=== PATIENT | female | born 2005 | race Caucasian/White ===

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

== ENCOUNTER 2024-10-10 18:39 | Emergency (ER) | payer SELFPAY ==
[2024-10-10 18:42] VITALS: BP 149/97; PULSE 117; RESP 18; TEMP 36.3; O2SAT 100
--- NOTE | 2024-10-10 19:01 | ED_ITS ---
HPI - Abdominal Pain General Chief Complaint: Abdominal Pain Stated Complaint: RLQ pain Time Seen by Provider: 10/10/24 18:50 Focused HPI: Patient is a 18-year-old female who presents to the ER with 3-4 days of left lower quadrant abdominal pain. she reports she was constipated but took a laxative yesterday and has since had a bowel movement. Patient reports her abdominal pain gotten better since then, but my mom convinced me I needed to come in. She reports she has a history of ovarian cysts, but no other pertinent medical history related to this visit. Patient denies chest pain, shortness of breath, fever. GENERAL: Well-appearing, well-nourished, and in no acute distress. HEAD: Normocephalic, atraumatic. CHEST: Clear to auscultation. ?No respiratory distress. HEART: Tachycardia and rhythm.? NEURO: ?Alert and oriented x3. Patient screened in triage and initial orders placed.? ?Additional care and disposition to be based upon?diagnostic testing and treatment. Related Data Allergies Allergy/AdvReac Type Severity Reaction Status Date / Time No Known Allergies Allergy Verified 09/12/23 21:47 PMFSH Past Medical History Medical History Asthma Depression Morbid obesity PCOS (polycystic ovarian syndrome) Suppression of menses Surgical History Surgical History H/O ovarian cystectomy History of tonsillectomy and adenoidectomy Family History Family History Other Family history of eczema Family history of elevated blood lipids Hypertension Social History Social History Smoking status: Never smoker Second hand tobacco smoke exposure: No Alcohol intake: never Substance use: never Substance use type: does not use Lack of Transportation: YES Lack of Food: Sometimes True Current Housing: I Have Housing Concerned About Future Housing: No Difficulty Paying Gas/Electric Bills: No Difficulty Paying for Meds: No Currently Unemployed: No Education: High School Diploma/GED Difficulty w/ Childcare or Family Care: No Living arrangements: with family Additional living arrangements comments: Occupation/Education: unemployed 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 Gender identity (if verbalized by the patient): Female Sexual Orientation (if Verbalized by the Patient): Straight or Heterosexual Course Vital Signs Vital signs: Vital Signs Temperature 97.4 F L 10/10/24 18:42 Pulse Rate 117 H 10/10/24 18:42 Respiratory Rate 18 10/10/24 18:42 Blood Pressure 149/97 H 10/10/24 18:42 Pulse Oximetry 100 10/10/24 18:42 Oxygen Delivery Room Air 10/10/24 18:42 Temperature 97.4 F L 10/10/24 18:42 Pulse Rate 117 H 10/10/24 18:42 Respiratory Rate 18 10/10/24 18:42 Blood Pressure 149/97 H 10/10/24 18:42 Pulse Oximetry 100 10/10/24 18:42 Oxygen Delivery Room Air 10/10/24 18:42 Discharge Plan Discharge Patient Disposition: Left Without Being Sn Triaged Instructions: Antibiotic Form Prescriptions: No Action progesterone micronized [Prometrium] 200 mg capsule 200 mg PO QHS 10 Days Qty: 10 1RF cephalexin 500 mg capsule 500 mg PO Q6H 7 Days Qty: 28 0RF Follow-up/Referrals: Oscar,MD Amadeo [Primary Care Provider] -
--- NOTE | 2024-10-10 20:00 | PC.NURSE ---
Patient walked up to intake desk and advised that she was leaving; patient had a steady gait upon exiting ED.
== END 2024-10-10 21:09 | disposition left against medical advice (07) ==
PROVIDERS: PCP Pediatrics
DX: R10.31 Right lower quadrant pain (principal)
CPT/HCPCS: 99199

== ENCOUNTER 2024-10-13 12:15 | Emergency (ER) | payer SELFPAY ==
--- NOTE | ~2024-10-13 | XR_ITS ---
EXAMINATION: XR abdomen/kub 1V DATE: 10/13/2024 13:55 INDICATION: Constipation. Generalized abdominal pain. TECHNIQUE: A supine view of the abdomen on 4 radiographs was obtained. COMPARISON: None. FINDINGS: Relative paucity of bowel gas throughout the abdomen and pelvis. Lung bases are clear. Bones are unre markable. IMPRESSION: 1. No dilated gas-filled loops of bowel to suggest obstruction. Reviewed, dictated and finalized at location A. [employer]
[2024-10-13 12:18] VITALS: BP 147/96; PULSE 118; RESP 20; TEMP 36.8; O2SAT 99
[2024-10-13 13:17] VITALS: BP 133/98; PULSE 90; RESP 20; O2SAT 99
[2024-10-13 14:14] LABS: BEDSIDEPREGUCG Negative (Negative)
[2024-10-13 14:21] LABS: Add Urine Microscopic? YES; Appearance Urine Cloudy (Clear); Bacteria Urine 2+ /hpf; Bilirubin Urine Negative (Negative); Blood Urine Negative (Negative); Color Urine Yellow (Yellow); Glucose Urine UA Negative (Negative); Ketones Urine Negative (Negative); Leukocyte Esterase Ur 1+ LEU/UL (Negative); Nitrate Urine Negative (Negative); Non Pathogenic Casts 0-2; Protein Urine Negative (Negative); RBC Urine 0-2 /hpf (0-2); Specific Grav Ur 1.023 (1.001-1.035); Squamous Epithelial Cell Urine Moderate /hpf (Few); Urobilinogen Urine 0.2 mg/dL (<2.0); pH Urine 5.5 (5.0-9.0)
[2024-10-13 14:27] LABS: Basophils Percent Auto 0.2 % (0.2-1.2); Eosinophils Absolute Auto 0.2 K/mm3 (0-0.3); Eosinophils Percent Auto 1.2 % (0-4.4); Hematocrit 39.5 % (37.0-47.0); Hemoglobin 12.5 g/dL (12.0-15.0); Immature Granulocyte Absolute 0.07 K/mm3 (0.00-0.031); Immature Granulocyte Percent A 0.5 % (0-0.5); Lymphocytes Absolute Auto 3.37 K/mm3 (0.9-3.2); Mean Corpuscular HGB Conc 31.6 g/dl (32-36); Mean Corpuscular Hemoglobin 25.9 pg (26-34); Mean Platelet Volume 9.8 fl (7.4-10.4); Monocytes Absolute Auto 0.8 K/mm3 (0.1-0.6); Monocytes Percent Auto 6.1 % (2.6-8.5); Neutrophils Absolute Auto 8.6 K/mm3 (1.3-6.7); Platelet Count Result 469 k/mm3 (150-375); Red Blood Count 4.82 M/mm3 (4.2-5.4); Red Cell Distribution Width 15.5 % (11.5-14.5)
[2024-10-13 14:36] LABS: Alanine Aminotransferase 30 U/L (6-35); Albumin Level 4.3 g/dL (3.7-5.6); Alkaline Phosphatase 80 U/L (45-116); Anion Gap 4 mmol/L (4-12); Aspartate Amino Transferase 29 U/L (14-36); Bilirubin,Total 0.3 mg/dL (0.2-1.3); Blood Urea Nitrogen 10 mg/dL (8-21); Calcium 9.2 mg/dL (8.9-10.7); Carbon Dioxide 27 mmol/L (22-30); Chloride 108 mmol/L (98-107); Estimated CRCL calculation 241 ml/min; Estimated Glomerular Filt Rate > 60; Glucose 103 mg/dL (65-110); Potassium 4.1 mmol/L (3.4-5.0); Sodium 139 mmol/L (134-143)
--- NOTE | 2024-10-13 15:01 | ED_ITS ---
HPI - Abdominal Pain General Chief Complaint: Abdominal Pain Stated Complaint: abd pain Time Seen by Provider: 10/13/24 13:07 History of Present Illness HPI narrative: Patient is a 18-year-old female who presents ER for evaluation of lower abdominal pain. Ongoing intermittently over last week. Was here couple days ago but left without being seen due to long wait times. Pain is actually improved but she used treating herself with constipation and has only had 3 stools in last few days. No diarrhea. No vomiting. Patient was originally in the right lower quadrant but now she has some pain on left side when she bends to the left side. Related Data Allergies Allergy/AdvReac Type Severity Reaction Status Date / Time No Known Allergies Allergy Verified 09/12/23 21:47 Review of Systems Constitutional: Constitutional: Reports no additional constitutional complaints ENT: Reports system reviewed and no additional complaints, except as documented Cardiovascular: Cardiovascular: Reports no additional cardiovascular complaints Respiratory: Respiratory: Reports no additional respiratory complaints Gastrointestinal: Gastrointestinal: Reports abdominal pain, Reports constipation, Denies nausea and Denies vomiting PMFSH Past Medical History Medical History Asthma Depression Morbid obesity PCOS (polycystic ovarian syndrome) Suppression of menses Surgical History Surgical History H/O ovarian cystectomy History of tonsillectomy and adenoidectomy Family History Family History Other Family history of eczema Family history of elevated blood lipids Hypertension Social History Social History Smoking status: Never smoker Second hand tobacco smoke exposure: No Alcohol intake: never Substance use: never Substance use type: does not use Lack of Transportation: YES Lack of Food: Sometimes True Current Housing: I Have Housing Concerned About Future Housing: No Difficulty Paying Gas/Electric Bills: No Difficulty Paying for Meds: No Currently Unemployed: No Education: High School Diploma/GED Difficulty w/ Childcare or Family Care: No Living arrangements: with family Additional living arrangements comments: Occupation/Education: unemployed 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 HEAD: Normocephalic, atraumatic. ENT: Mucous membranes moist. CHEST: Clear to auscultation. No respiratory distress. HEART: Regular rate and rhythm. Normal peripheral pulses. ABDOMEN: Soft, nontender, nondistended. EXTREMITIES: Normal range of motion. No edema. NEURO: Alert and oriented x3. PSYCH: Normal mood and affect. Course Course Emergency Course: abdomen nontender on exam. José Miguel will leukocytosis. Urine without evidence of infection with 2+ bacteria 11-20 white blood cells and 1+ leukocyte esterase. Will start on cephalexin. X-ray without significant constipation. Vital Signs Vital signs: Vital Signs Temperature 98.2 F 10/13/24 12:18 Pulse Rate 118 H 10/13/24 12:18 Respiratory Rate 20 10/13/24 12:18 Blood Pressure 147/96 H 10/13/24 12:18 Pulse Oximetry 99 10/13/24 12:18 Oxygen Delivery Room Air 10/13/24 12:18 Temperature 98.2 F 10/13/24 12:18 Pulse Rate 90 10/13/24 13:17 Respiratory Rate 20 10/13/24 13:17 Blood Pressure 133/98 H 10/13/24 13:17 Pulse Oximetry 99 10/13/24 13:17 Oxygen Delivery Room Air 10/13/24 12:18 MDM - Abdominal Pain Lab Data 10/13/24 14:22 10/13/24 14:22 Labs: Lab Results 10/13/24 10/13/24 Range/Units 14:11 14:22 WBC 13.0 H (4.5-10.0) K/mm3 RBC 4.82 (4.2-5.4) M/mm3 Hgb 12.5 (12.0-15.0) g/dL Hct 39.5 (37.0-47.0) % MCV 82.0 (80-100) fl MCH 25.9 L (26-34) pg MCHC 31.6 L (32-36) g/dl RDW 15.5 H (11.5-14.5) % Plt Count 469 H (150-375) k/mm3 MPV 9.8 (7.4-10.4) fl Immature Gran % (Auto) 0.5 (0-0.5) % Neut % (Auto) 66.0 (45.5-73.1) % Lymph % (Auto) 26.0 (18.3-44.2) % [place] % (Auto) 6.1 (2.6-8.5) % Eos % (Auto) 1.2 (0-4.4) % Baso % (Auto) 0.2 (0.2-1.2) % Lymph # (Auto) 3.37 H (0.9-3.2) K/mm3 [place] # (Auto) 0.8 H (0.1-0.6) K/mm3 Eos # (Auto) 0.2 (0-0.3) K/mm3 Baso # (Auto) 0.0 (0.0-0.1) K/mm3 Abs Immat Gran (auto) 0.07 H (0.00-0.031) K/mm3 Absolute Neuts (auto) 8.6 H (1.3-6.7) K/mm3 Absolute Nucleated RBC 0.000 (0.0-0.012) K/mm3 Nucleated RBC % 0.0 (0.0-0.2) % Sodium 139 (134-143) mmol/L Potassium 4.1 (3.4-5.0) mmol/L Chloride 108 H (98-107) mmol/L Carbon Dioxide 27 (22-30) mmol/L Anion Gap 4 (4-12) mmol/L BUN 10 (8-21) mg/dL Creatinine 0.60 L (0.7-1.0) mg/dL Estim Creat Clear Calc 241 ml/min Estimated GFR > 60 (59 - ) Glucose 103 (65-110) mg/dL Calcium 9.2 (8.9-10.7) mg/dL Total Bilirubin 0.3 (0.2-1.3) mg/dL AST 29 (14-36) U/L ALT 30 (6-35) U/L Alkaline Phosphatase 80 (45-116) U/L Total Protein 9.0 H (6.3-8.6) g/dL Albumin 4.3 (3.7-5.6) g/dL Urine Color Yellow (Yellow) Urine Appearance Cloudy H (Clear) Urine pH 5.5 (5.0-9.0) Ur Specific [place] 1.023 (1.001-1.035) Urine Protein Negative (Negative) mg/dL Urine Glucose (UA) Negative (Negative) mg/dL Urine Ketones Negative (Negative) mg/dL Ur Blood (Man) Negative (Negative) Urine Nitrate Negative (Negative) Urine Bilirubin Negative (Negative) Urine Urobilinogen 0.2 (<2.0) mg/dL Leukocyte Esterase Rfl 1+ H (Negative) EB/UL Urine RBC 0-2 (0-2) /hpf Urine WBC 11-20 H (0-3) /hpf Ur Squamous Epith Cells Moderate (Few) /hpf Urine Bacteria 2+ H /hpf Urine Casts 0-2 POC Urine HCG, Qual Negative (Negative) Imaging Data Radiologist's impression: ITS Impressions Abdomen X-Ray 10/13/24 14:27 IMPRESSION: 1. No dilated gas-filled loops of bowel to suggest obstruction. Discharge Plan Discharge Clinical Impression: UTI (urinary tract infection) Patient Disposition: Home, Self-Care Condition: Stable Instructions: Antibiotic Form, Urinary Tract Infection in Women (ED) Additional Instructions: You should return to the emergency department if you develop severe nausea and vomiting and are unable to keep liquids down, if you develop severe back/flank or stomach pain, or if your symptoms are not clearly improving at home. Prescriptions: New cephalexin 500 mg capsule 500 mg PO Q8H Qty: 15 0RF No Action progesterone micronized [Prometrium] 200 mg capsule 200 mg PO QHS 10 Days Qty: 10 1RF cephalexin 500 mg capsule 500 mg PO Q6H 7 Days Qty: 28 0RF Follow-up/Referrals: Oscar,MD Amadeo [Primary Care Provider] - 1 Week
[2024-10-13 15:29] VITALS: BP 141/89; PULSE 98; RESP 19; O2SAT 97
== END 2024-10-13 15:30 | disposition home or self-care (01) ==
PROVIDERS: Emergency Provider Emergency Medicine; PCP Pediatrics
DX: N39.0 Urinary tract infection, site not specified (principal); J45.909 Unspecified asthma, uncomplicated; E28.2 Polycystic ovarian syndrome; E66.01 Morbid (severe) obesity due to excess calories
CPT/HCPCS: 36415; 74018; 80053; 81001; 81025; 85025; 87086; 99283

== ENCOUNTER 2025-05-01 16:38 | Emergency (ER) | payer SELFPAY ==
--- NOTE | ~2025-05-01 | US_ITS ---
RIGHT UPPER QUADRANT ABDOMINAL ULTRASOUND (Doppler ultrasound interrogation techniques used as needed for this exam.) Ordering provider: Jahaira Lui APRN History: . concern for gall bladder issues . Comparison: None. FINDINGS: PANCREAS: Normal echotexture and size. PORTAL VEIN: Hepatopedal flow demonstrated. LIVER: Normal size and echotexture. No focal hepatic lesions or perihepatic fluid collections are adriana ntified. BILIARY DUCTS: No intra or extrahepatic biliary dilation. Common bile duct measures 3.6 mm in diamete r which is normal for patient's age. GALLBLADDER: Possible sludge. No stones, gallbladder wall thickening or pericholecystic fluid. Wall t hickness measures 2.3 mm. Negative sonographic Greene's sign. FREE FLUID: None visualized within the upper abdomen. IMPRESSION: Possible sludge. Otherwise, normal limited abdominal ultrasound. Reviewed, dictated and finalized at location A.
--- NOTE | ~2025-05-01 | US_ITS ---
US pelvic complete w TV Ordering provider: Jahaira Lui APRN History: . abdominal pain, pt too large for CT scanner . Comparison: None. Technique: Transabdominal and endovaginal ultrasound of the pelvis (Doppler ultrasound interrogation techniques used as needed for this exam.) FINDINGS: CERVIX: Normal. UTERUS: Measures 6.8x 4x 4.5 cm in length which is within normal limits and is anteverted. No myomet rial masses. ENDOMETRIUM: Normal in thickness measuring 3.2 mm. No endometrial masses, cysts or fluid. CUL DE SAC: No free fluid. RIGHT OVARY: Not visualized. LEFT OVARY: Not visualized. ADNEXA: Normal. No mass. IMPRESSION: Nonvisualization of the ovaries. Otherwise, normal pelvic ultrasound. Reviewed, dictated and finalized at location A.
[2025-05-01 16:53] VITALS: BP 186/110; PULSE 56; RESP 16; TEMP 36.5; O2SAT 100
--- NOTE | 2025-05-01 18:08 | ECG_ITS ---
Test Date: 2025-05-01 18:24:07 Measurements Intervals [place] Rate: 85 P: 39 CT: 149 QRS: 33 QRSD: 93 T: 15 QT: 358 QTc: 426 Interpretive Statements SINUS RHYTHM BASELINE ARTIFACT- I, III, AVL NORMAL ECG No previous ECG available for comparison Electronically Signed On 05-01-2025 18:46:16 CDT by Mahin Willingham D.O.
--- NOTE | 2025-05-01 18:11 | ED_ITS ---
HPI - Nausea/Vomiting/Diarrhea General Chief complaint: Nausea/Vomiting/Diarrhea Stated complaint: N/V Time Seen by Provider: 05/01/25 17:39 History of Present Illness HPI Narrative: Patient is a 19-year-old female who presents to the ER with abdominal pain and nausea/vomiting that have been going on for the past 4 days. She reports she was in [place] and when she returned home she started experiencing these symptoms. Patient reports she went to the hospital twice on Tuesday and once on Tuesday, yesterday. She reports no one has been able to find anything wrong. Patient reports her pain is worse when she is laying flat and she endorses some vertigo. She reports the pain centers around her umbilicus. Patient reports her symptoms were better on Tuesday, but on Tuesday they started up again and she was ?projectile vomiting. She reports she has had multiple presyncopal episodes due to the vomiting. Patient denies any urinary symptoms, recent fevers and headache. She denies alcohol or illicit drug use, but endorses occasional marijuana use. Patient endorses a history of PCOS and GERD. Related Data Allergies Allergy/AdvReac Type Severity Reaction Status Date / Time No Known Allergies Allergy Verified 06/12/16 17:09 Review of Systems 2 Review of Systems: All systems reviewed & are unremarkable except as noted in HPI and below Exam 2 Narrative: GENERAL: Well appearing, obese, non-toxic, in no acute distress. HEAD: Normocephalic, atraumatic. NECK: Supple. No adenopathy, no masses. RESPIRATORY: Airway patent, respirations nonlabored. Clear to auscultation bilaterally, no rales, rhonchi, wheezing. CARDIOVASCULAR: Regular rate and rhythm without murmurs, rubs, or gallops. Peripheral pulses 2+ and equal bilaterally. ABDOMINAL: Soft, tender periumbilicus, nondistended, no hepatosplenomegaly. Normoactive BS. MUSCULOSKELETAL: Moves all extremities. Strength/ROM intact without gross deformities. SKIN: Warm, dry, normal color. No rashes. NEURO: A&O X3. Speech clear. Cranial nerves II-XII intact. No ataxic movements. PSYCHIATRIC: Appropriate mood and affect. Normal interaction. Course Vital Signs Vital signs: Vital Signs Temperature 36.5 C 05/01/25 16:53 Pulse Rate 56 L 05/01/25 16:53 Respiratory Rate 16 05/01/25 16:53 Blood Pressure 186/110 H 05/01/25 16:53 Pulse Oximetry 100 05/01/25 16:53 Oxygen Delivery Room Air 05/01/25 16:53 Temperature 36.5 C 05/01/25 16:53 Pulse Rate 56 L 05/01/25 16:53 Respiratory Rate 16 05/01/25 16:53 Blood Pressure 186/110 H 05/01/25 16:53 Pulse Oximetry 100 05/01/25 16:53 Oxygen Delivery Room Air 05/01/25 16:53 MDM - Nausea/Vomiting/Diarrhea MDM Narrative Medical decision making narrative: Patient is a 19-year-old female who presents to the ER with abdominal pain and nausea/vomiting that have been going on for the past 4 days. She reports she was in [place] and when she returned home she started experiencing these symptoms. Patient reports she went to the hospital twice on Tuesday and once on Tuesday, yesterday. She reports no one has been able to find anything wrong. Patient reports her pain is worse when she is laying flat and she endorses some vertigo. She reports the pain centers around her umbilicus. Patient reports her symptoms were better on Tuesday, but on Tuesday they started up again and she was ?projectile vomiting. She reports she has had multiple presyncopal episodes due to the vomiting. Patient denies any urinary symptoms, recent fevers and headache. She denies alcohol or illicit drug use, but endorses occasional marijuana use. Patient endorses a history of PCOS and GERD. Labs Ordered: CBC, CMP, lipase, UA, lactic acid, PTT, INR, UDS Imaging Ordered: CT abdomen pelvis (patient too large for the scanner), complete pelvic ultrasound Medications Ordered: 1 L normal saline IV bolus, Benadryl IV, Reglan IV Results: Pt's abdominal ultrasound indicates Possible sludge, otherwise, normal limited abdominal ultrasound. Nonvisualization of the ovaries, otherwise normal pelvic ultrasound. Pt's urinalysis indicates a mild urinary tract infection. Her UDS indicates marijuana use. Diagnosis: Drug induced nausea and vomiting, urinary tract infection Patient Education/Shared MDM: Results of lab work and imaging shared with patient. She will be given her 1st dose of antibiotics for her UTI here in the ER. Patient strongly advised to maintain hydration status upon discharge and follow-up with their PCP as soon as possible. She will be discharged home with a prescription for capsaicin lotion and Macrobid. Strict return precautions provided. Patient verbalized understanding and is in agreement with plan. Vital signs stable at time of discharge. All questions answered. Differential Diagnosis Differential diagnosis: Likely food poisoning, gastroenteritis, drug-induced nausea and vomiting, dehydration and other (Urinary tract infection) Lab Data Attestation: I reviewed the patient's lab results. 05/01/25 18:26 05/01/25 18:26 Labs: Lab Results 05/01/25 05/01/25 05/01/25 Range/Units 18:26 19:19 19:22 WBC 12.9 H (4.5-10.0) K/mm3 RBC 4.61 (4.2-5.4) M/mm3 Hgb 11.5 L (12.0-15.0) g/dL Hct 38.2 (37.0-47.0) % MCV 82.9 (80-100) fl MCH 24.9 L (26-34) pg MCHC 30.1 L (32-36) g/dl RDW 15.9 H (11.5-14.5) % Plt Count 405 H (150-375) k/mm3 MPV 9.6 (7.4-10.4) fl Immature Gran % (Auto) 0.6 H (0-0.5) % Neut % (Auto) 78.6 H (45.5-73.1) % Lymph % (Auto) 14.8 L (18.3-44.2) % [place] % (Auto) 5.5 (2.6-8.5) % Eos % (Auto) 0.2 (0-4.4) % Baso % (Auto) 0.3 (0.2-1.2) % Lymph # (Auto) 1.92 (0.9-3.2) K/mm3 [place] # (Auto) 0.7 H (0.1-0.6) K/mm3 Eos # (Auto) 0.0 (0-0.3) K/mm3 Baso # (Auto) 0.0 (0.0-0.1) K/mm3 Abs Immat Gran (auto) 0.08 H (0.00-0.031) K/mm3 Absolute Neuts (auto) 10.2 H (1.3-6.7) K/mm3 Absolute Nucleated RBC 0.000 (0.0-0.012) K/mm3 Nucleated RBC % 0.0 (0.0-0.2) % PT 15.0 H (11.1-14.7) Seconds INR 1.2 APTT 27.5 (22.3-36.8) Seconds Sodium 139 (137-145) mmol/L Potassium 3.4 (3.4-5.0) mmol/L Chloride 107 (98-107) mmol/L Carbon Dioxide 23 (22-30) mmol/L Anion Gap 9 (4-12) mmol/L BUN 5 L (7-17) mg/dL Creatinine 0.55 L (0.7-1.0) mg/dL Estim Creat Clear Calc 253 ml/min Estimated GFR > 60 (59 - ) Glucose 116 H (65-110) mg/dL Lactic Acid 1.0 (0.7-2.0) mmol/L Calcium 8.7 (8.4-10.2) mg/dL Total Bilirubin 0.3 (0.2-1.3) mg/dL AST 25 (14-36) U/L ALT 24 (6-35) U/L Alkaline Phosphatase 72 (38-126) U/L Total Protein 7.6 (6.3-8.2) g/dL Albumin 3.9 (3.5-5.1) g/dL Lipase 33 (23-300) U/L Urine Color Yellow (Yellow) Urine Appearance Cloudy H (Clear) Urine pH 7.0 (5.0-9.0) Ur Specific [place] 1.018 (1.001-1.035) Urine Protein Trace (Negative) mg/dL Urine Glucose (UA) Negative (Negative) mg/dL Urine Ketones 2+ H (Negative) mg/dL Ur Blood (Man) 3+ H (Negative) Urine Nitrate Negative (Negative) Urine Bilirubin Negative (Negative) Urine Urobilinogen 0.2 (<2.0) mg/dL Add Ur Microanalysis Reviewed Leukocyte Esterase Rfl Trace H (Negative) EB/UL Urine RBC 0-2 (0-2) /hpf Urine WBC 6-10 H (0-3) /hpf Ur Squamous Epith Cells Moderate (Few) /hpf Urine Bacteria 3+ H /hpf Urine Casts 0-2 POC Urine HCG, Qual Negative (Negative) Urine Opiates Screen Negative (Negative) Urine Methadone Screen Negative (Negative) Ur Barbiturates Screen Negative (Negative) Ur Phencyclidine Scrn Negative (Negative) Ur Amphetamine Screen Negative (Negative) U Benzodiazepines Scrn Negative (Negative) Urine Cocaine Screen Negative (Negative) U Cannabinoids Screen Positive A (Negative) Imaging Data Attestation: I personally reviewed and interpreted this imaging study as follows: Radiologist's impression: Impressions Pelvic/Transvag US 05/01/25 21:54 IMPRESSION: Nonvisualization of the ovaries. Otherwise, normal pelvic ultrasound. Abdomen Ultrasound 05/01/25 21:58 IMPRESSION: Possible sludge. Otherwise, normal limited abdominal ultrasound. Discharge Plan Discharge Clinical Impression: Gastroenteritis, Drug-induced nausea and vomiting, Dehydration, Urinary tract infection Patient Disposition: Home Condition: Stable Instructions: Antibiotic Form, Dehydration (ED), Acute Nausea and Vomiting (ED) Additional Instructions: Please return to the ER with any worsening symptoms. Follow-up with primary care provider as soon as possible. Take all medications as prescribed, including regularly scheduled medications. Complete your full dose of antibiotics. If you start to experience the symptoms again please take a hot shower and put capsaicin lotion on your abdomen Patient Language: Portuguese Prescriptions: New nitrofurantoin monohyd/m-cryst [Macrobid] 100 mg capsule 100 mg PO Q12H 5 Days Qty: 10 0RF Rx Instructions: must administer with a meal/food dicyclomine 20 mg tablet 20 mg PO TID Qty: 20 0RF capsaicin 0.1 % cream 1 applic topical TID Qty: 56.6 0RF Rx Instructions: do not wash area for at least 30 min after application Follow-up/Referrals: Oscar,MD Amadeo [Non-Staff] - Stand Alone Forms: Work/School Release IP Time of Disposition: 23:13
--- OUTSIDE RECORDS SUMMARY | 2025-05-01 18:14 | XMS_ITS | Encounter Summary ---
Author Organization [facility] Address [address] [place] [address] Phone Care Team Providers Care Project Engineering Manager Name Role Phone Provider, None Primary Care Provider Unavailabl e Reason for Visit * Reason Comments Nausea Encounter Details Date Type Department Care Team ([facility] st Contact Info) Description 05/01/2025 11:09 AM CDT - 05/01/2025 2:35 PM CDT Emergency [facility] Emergency [address] [place] [address] Axel Schmidt, PAC [address] [place] [address] Nausea and vomiting Discharge Disposition: Discharged to home or Selfcare Social History Tobacco Use Types Packs/Day Years Used Date Smoking Tobacco: Never Smokeless Tobacco: Never Alcohol Use Standard Drinks/Week Comments No 0 (1 standard drink = 0.6 oz pur e alcohol) Comments No Sex and Gender Information Value Date Recorded Sex Assigned at Not on file Legal Sex Female 5:41 PM CDT Gender Identity Not on file Sexual Orientation Not on file documented as of this encounter Last Filed Vital Signs Vital Sign Reading Time Taken Comments Blood Pressure 166/118 05/01/2025 11:15 AM CDT Pulse 64 05/01/2025 1:15 PM CDT Temperature 37.1 C (98.8 F) 05/01/2025 11:14 AM CDT Respiratory Rate 18 05/01/2025 12:03 PM CDT Oxygen Saturation 95% 05/01/2025 1:15 PM CDT Inhaled Oxygen Concentration - - Weight 210 kg (462 lb 15.5 oz) 05/01/2025 11:19 AM CDT Height 165.1 cm (5' 5) 05/01/2025 11:19 AM CDT Body Mass Index 77.04 05/01/2025 11:19 AM CDT documented in this encounter Medications at Time of Discharge cephALEXin (KEFLEX) 500 MG Capsule Take 500 mg by mouth 4 times daily. 04/30/2025 ondansetron (ZOFRAN-ODT) 4 MG TABLET DISPERSIBLE Take 1 Tablet by mouth every 6 hours as needed for Nausea - 1st line. 10 Tablet 03/17/2022 prochlorperazine (COMPAZINE) 5 MG TabletIndications :Nausea and Vomiting Take 1 Tablet by mouth every 6 hours as needed for Nausea - 1st line. Indications: Nausea and Vomiting 10 Tablet 05/01/2025 documented as of this encounter ED Notes * José Miguel Carreon RN - 05/01/2025 2:37 PM CDT Pt. Verbalized understanding to discharge instructions. Pt left ER by wheelchair with all patient belongings. Patients Mother was called and left a message to call back that patient is ready for discharge. * José Miguel Carreon RN - 05/01/2025 1:15 PM CDT Pt. Taken by wheelchair to bathroom and ambulated into bathroom and able to provide urine specimen. * José Miguel Carreon RN - 05/01/2025 11:39 AM CDT Pt medicated per provider orders. Pt educated on intended effects and side effects of medication and verbalized understanding, able to provide teach back of education. * José Miguel Carreon RN - 05/01/2025 11:15 AM CDT Pt. Arrives to the ER with c/o of nausea and vomiting x3 days. Pt. Has been to [facility] twice this week already once on Tuesday when the symptoms first began and then on yesterday when the symptoms have persisted. Pt. Has had 3 episodes of emesis this morning before coming to the ER. Pt. Having complaints of 9.5/10 abdominal pain at this time. documented in this encounter Miscellaneous Notes * PatientPass Patient Instructions - Axel Schmidt, ROBB - 05/01/2025 2:25 PM CDT Images from the original note were not included. Patient Education Table of Contents Nausea and Vomiting, Adult To view videos and all your education online visit, [email or web address] or scan this QR code with your smartphone. Access to this content will in one year. Nausea and Vomiting, Adult Nausea is feeling that you have an upset stomach and that you are about to vomit. Vomiting is when food in your stomach forcefully comes out of your mouth. Vomiting can make you feel weak. If you vomit, or if you are not able to drink enough fluids, you may not have enough water in your body (get dehydrated). If you do not have enough water in your body, you may: Feel tired. Feel thirsty. Have a dry mouth. Have cracked lips. Pee (urinate) less often. Older adults and people with other diseases or a weak body defense system (immune system) are at higher risk for not having enough water in the body. If you feel like you may vomit or you vomit, it is important to follow instructions from your doctor about how to take care of yourself. Follow these instructions at home: Watch your symptoms for any changes. Tell your doctor about them. Eating and drinking Take an ORS (oral rehydration solution). This is a drink that is sold at pharmacies and stores. Drink clear fluids in small amounts as you are able, such as: ? Water. ? Ice chips. ? Fruit juice that has water added (diluted fruit juice). ? Low-calorie sports drinks. Eat bland, cmdh-hw-csfmzb foods in small amounts as you are able, such as: ? Bananas. ? Applesauce. ? Rice. ? Low-fat (lean) meats. ? [place]. ? Crackers. Avoid drinking fluids that have a lot of sugar or caffeine in them. This includes energy drinks, sports drinks, and soda. Avoid alcohol. Avoid spicy or fatty foods. General instructions Take rhay-oyi-qjggchn and prescription medicines only as told by your doctor. Drink enough fluid to keep your pee (urine) pale yellow. Wash your hands often with soap and water for at least 20 seconds. If you cannot use soap and water, use hand lease operator. Make sure that everyone in your home washes their hands well and often. Rest at home until you feel better. Watch your condition for any changes. Take slow and deep breaths when you feel like you may vomit. Keep all follow-up visits. Contact a doctor if: Your symptoms get worse. You have new symptoms. You have a fever. You cannot drink fluids without vomiting. You feel like you may vomit for more than 2 days. You feel light-headed or dizzy. You have a headache. You have muscle cramps. You have a rash. You have pain while peeing. Get help right away if: You have pain in your chest, neck, arm, or jaw. You feel very weak or you faint. You vomit again and again. You have vomit that is bright red or looks like black coffee grounds. You have bloody or black poop (stools) or poop that looks like tar. You have a very bad headache, a stiff neck, or both. You have very bad pain, cramping, or bloating in your belly (abdomen). You have trouble breathing. You are breathing very quickly. Your heart is beating very quickly. Your skin feels cold and clammy. You feel confused. You have signs of losing too much water in your body, such as: ? Dark pee, very little pee, or no pee. ? Cracked lips. ? Dry mouth. ? Sunken eyes. ? Sleepiness. ? Weakness. These symptoms may be an emergency. Get help right away. Call 911. Do not wait to see if the symptoms will go away. Do not drive yourself to the hospital. Summary Nausea is feeling that you have an upset stomach and that you are about to vomit. Vomiting is when food in your stomach comes out of your mouth. Follow instructions from your doctor about eating and drinking. Take bavh-vcn-cxkbtek and prescription medicines only as told by your doctor. Contact your doctor if your symptoms get worse or you have new symptoms. Keep all follow-up visits. This information is not intended to replace advice given to you by your health care provider. Make sure you discuss any questions you have with your health care provider. Document Released: 2009-04-25 Document Updated: 2022-05-13 Document Reviewed: 2022-05-14 [employer] Patient Education ? 2024 [employer]. documented in this encounter Plan of Treatment Not on file documented as of this encounter Procedures Procedure Name Priority Date/Time Associated Diagnosis Comments URINALYSIS REFLEX IF INDICATED BY ABNORMAL RESULTS STAT 05/01/2025 1:15 PM CDT URINE DRUG SCREEN STAT 05/01/2025 1:1 5 PM CDT CBC WITH AUTO DIFFERENTIAL STAT 05/01/2025 11:30 AM CDT LIPASE STAT 05/01/2025 11:30 AM CDT CMP (COMPREHENSIVE METABOLIC PANEL) STAT 05/01/2025 11:30 AM CDT COMPLETE BLOOD COUNT (CBC) WITH DIFF STAT 05/01/2025 11:30 AM CDT documented in this encounter Results * (ABNORMAL) Urine Drug Screen (05/01/2025 1:15 PM CDT) UR AMPHETAMINE NON DETECTED NON DETECTED 05/01/2025 2:01 PM CDT [facility] Comment: FOR MEDICAL USE ONLY. CUTOFF CONCENTRATION FOR DETECTED RESULT: AMPHETAMINE: 500 NG/ML UR BENZODIAZEPINES NON DETECTED NON DETECTED 05/01/2025 2:01 PM CDT [facility] Comment: FOR MEDICAL USE ONLY. CUTOFF CONCENTRATION FOR DETECTED RESULT: BENZODIAZAPINE: 200 NG/ML UR COCAINE METABOLITE NON DETECTED NON DETECTED 05/01/2025 2:01 PM CDT [facility] Comment: FOR MEDICAL USE ONLY. CUTOFF CONCENTRATION FOR DETECTED RESULT: COCAINE: 150 NG/ML UR OPIATES NON DETECTED NON DETECTED 05/01/2025 2:01 PM CDT [facility] Comment: FOR MEDICAL USE ONLY. CUTOFF CONCENTRATION FOR DETECTED RESULT: OPIATES: 300 NG/ML UR PHENCYCLIDINE NON DETECTED NON DETECTED 05/01/2025 2:01 PM CDT [facility] Comment: FOR MEDICAL USE ONLY. CUTOFF CONCENTRATION FOR DETECTED RESULT: PCP: 25 NG/ML UR CANNABINOID DETECTED(A) NON DETECTED 05/01/2025 2:01 PM CDT [facility] Comment: FOR MEDICAL USE ONLY. CUTOFF CONCENTRATION FOR DETECTED RESULT: THC (MARIJUANA): 50 NG/ML UR BARBITURATE NON DETECTED NON DETECTED 05/01/2025 2:01 PM CDT [facility] Comment: FOR MEDICAL USE ONLY. CUTOFF CONCENTRATION FOR DETECTED RESULT: BARBITUATES: 200 NG/ML UR FENTANYL NON DETECTED NON DETECTED 05/01/2025 2:01 PM CDT [facility] Comment: FOR MEDICAL USE ONLY. CUTOFF CONCENTRATION FOR DETECTED RESULT: FENTANYL: 1.0 NG/ML Urine Non-Phlebotomy Collection / Unknown 05/01/2025 1:15 PM CDT 05/01/2025 1:28 PM CDT Axel Schmidt PAC URINE ORDERABLES Fin al Result [facility] [address] [place] [address] * (ABNORMAL) Urinalysis w/ Reflex (05/01/2025 1:15 PM CDT) SPECIFIC GRAVITY 1.010 1.003 - 1.030 05/01/2025 2:07 PM CDT [facility] URINE PH 7.0 5.0 - 9.0 05/01/2025 2:07 PM CDT [facility] WBC ESTERASE 25 /ul(A) Negative 05/01/2025 2:07 PM CDT [facility] NITRITE Negative Negative 05/01/2025 2:07 PM CDT [facility] PROTEIN, RANDOM URINE 30 mg/dL(A) Negative 05/01/2025 2:07 PM CDT [facility] URINE GLUCOSE, QUAL Negative Negative 05/01/2025 2:07 PM CDT [facility] URINE KETONES 5 mg/dL(A) Negative 05/01/2025 2:07 PM CDT [facility] UROBILINOGEN Normal Normal mg/dL 05/01/2025 2:07 PM CDT [facility] URINE BLOOD 250 /uL(A) Negative brittayn/ul 05/01/2025 2:07 PM CDT [facility] URINALYSIS COLOR Light Yellow 05/01/2025 2:07 PM CDT [facility] URINALYSIS CLARITY Clear 05/01/2025 2:07 PM CDT [facility] WBC (Urine) 0-5 Negative, 0-5 /hpf 05/01/2025 2:07 PM CDT [facility] URINE RBC'S 11-20(A) Negative, 0-2 /hpf 05/01/2025 2:07 PM CDT [facility] EPITHELIAL CELLS Occasional /lpf 05/01/2025 2:07 PM CDT [facility] BACTERIA, URINE Few(A) Negative /hpf 05/01/2025 2:07 PM CDT [facility] Urine URINE SPECIMEN / Unknown Non-Phlebotomy Collection / Unknown 05/01/2025 1:15 PM CDT 05/01/2025 1:28 PM CDT us Axel Schmidt PAC URINE ORDERABLES Fin al Result [facility] [address] [place] [address] * (ABNORMAL) CBC with Auto Differential (05/01/2025 11:30 AM CDT) [facility] Signature WBC 12.01(H) 4.00 - 12.00 10(3)/[facility] 05/01/2025 11:50 AM CDT [facility] RBC 4.88 3.80 - 5.30 10(6)/[facility] 05/01/2025 11:50 AM CDT [facility] HEMOGLOBIN (HGB) 12.5 12.0 - 15.8 g/dL 05/01/2025 11:50 AM CDT [facility] HEMATOCRIT (HCT) 39.8 36.0 - 47.0 % 05/01/2025 11:50 AM CDT [facility] MCV 81.6(L) 82.0 - 96.0 fL 05/01/2025 11:50 AM CDT [facility] MCH 25.6(L) 26.0 - 34.0 pg 05/01/2025 11:50 AM CDT [facility] MCHC 31.4 31.0 - 36.0 g/dL 05/01/2025 11:50 AM CDT [facility] PLATELET COUNT 448(H) 140 - 440 10(3)/[facility] 05/01/2025 11:50 AM CDT [facility] RDW 15.7(H) 11.8 - 15.5 % 05/01/2025 11:50 AM CDT [facility] MPV 10.1 9.7 - 12.4 fL 05/01/2025 11:50 AM CDT [facility] NEUTROPHILS 80.5(H) 47.0 - 73.0 % 05/01/2025 11:50 AM CDT [facility] LYMPHOCYTES 14.3(L) 18.0 - 42.0 % 05/01/2025 11:50 AM CDT [facility] MONOCYTES 4.7 4.0 - 12.0 % 05/01/2025 11:50 AM CDT [facility] EOSINOPHILS 0.2 0.0 - 5.0 % 05/01/2025 11:50 AM CDT [facility] BASOPHILS 0.3 0.0 - 1.0 % 05/01/2025 11:50 AM CDT [facility] ABSOLUTE NEUTROPHILS 9.67(H) 1.60 - 7.70 10(3)/[facility] 05/01/2025 11:50 AM CDT [facility] ABSOLUTE LYMPHOCYTES 1.72 1.30 - 3.20 10(3)/[facility] 05/01/2025 11:50 AM CDT [facility] ABSOLUTE MONOCYTES 0.56 0.20 - 1.00 10(3)/[facility] 05/01/2025 11:50 AM CDT [facility] ABSOLUTE EOSINOPHIL 0.02 0.00 - 0.40 10(3)/[facility] 05/01/2025 11:50 AM CDT [facility] ABSOLUTE BASOPHILS 0.04 0.00 - 0.10 10(3)/[facility] 05/01/2025 11:50 AM CDT [facility] NRBC PER 100 WBC 0 05/01/20 11:50 AM CDT [facility] Blood Venipuncture / Unknown 05/01/2025 11:30 AM CDT 05/01/2025 11:45 AM CDT Axel Schmidt PAC HEMATOLOGY ORDERABLE S Final Result Performing Organization Address City/[facility]/ZIP Co de Phone Number [facility] [address] [place] [address] * Lipase (05/01/2025 11:30 AM CDT) LIPASE 11 8 - 78 U/L 05/01/2025 12:08 PM CDT [facility] Blood Venipuncture / Unknown 05/01/2025 11:30 AM CDT 05/01/2025 11:45 AM CDT Axel Schmidt PAC CHEMISTRY ORDERABLES Final Result [facility] [address] [place] [address] * (ABNORMAL) CMP (05/01/2025 11:30 AM CDT) SODIUM 139 136 - 145 mmol/L 05/01/2025 12:08 PM CDT [facility] POTASSIUM 4.0 3.5 - 5.1 mmol/L 05/01/2025 12:08 PM CDT [facility] CHLORIDE 108(H) 98 - 107 mmol/L 05/01/2025 12:08 PM CDT [facility] CO2, VENOUS 23 22 - 30 mmol/L 05/01/2025 12:08 PM CDT [facility] ANION GAP 12.0 <18.0 mmol/L 05/01/2025 12:08 PM CDT [facility] GLUCOSE 122(H) 70 - 99 mg/dL 05/01/2025 12:08 PM CDT [facility] BUN 7 5 - 18 mg/dL 05/01/2025 12:08 PM CDT [facility] CREATININE, BLOOD 0.60 0.60 - 1.00 mg/dL 05/01/2025 12:08 PM CDT [facility] BUN/CREATININE RATIO 12 12 - 20 ratio 05/01/2025 12:08 PM CDT [facility] TOTAL PROTEIN 8.0 6.0 - 8.0 g/dL 05/01/2025 12:08 PM CDT [facility] ALBUMIN 3.9 3.5 - 5.0 g/dL 05/01/2025 12:08 PM CDT [facility] A/G RATIO 1.0 1.0 - 2.2 05/01/2025 12:08 PM CDT [facility] CALCIUM 8.9 8.7 - 10.5 mg/dL 05/01/2025 12:08 PM CDT [facility] T BILI 0.3 0.2 - 1.2 mg/dL 05/01/2025 12:08 PM CDT [facility] SGOT (AST) 19 <43 U/L 05/01/2025 12:08 PM CDT [facility] SGPT (ALT) 19 <56 U/L 05/01/2025 12:08 PM CDT [facility] ALKALINE PHOSPHATASE 69 40 - 150 U/L 05/01/2025 12:08 PM CDT [facility] GFR, ESTIMATED >60 >=60 05/01/2025 12:08 PM CDT [facility] Comment: Creatinine Clearance is the preferred criteria for selecting drug dose adjustments in renally impaired patients. The GFR is provided as additional pertinent clinical information. GFR is reported in mL/min/1.73 sq m. Calculation based on the Chronic Kidney Disease Epidemiology Collaboration (CKD- EPI) equation refit without adjustment for race. GFR, EST. >60 >=60 025 12:08 PM CDT [facility] GFR, EST. NONAFRICAN >60 >=60 05/01/2025 12:08 PM CDT [facility] Blood Venipuncture / Unknown 05/01/2025 11:30 AM CDT 05/01/2025 11:45 AM CDT Axel Schmidt PAC CHEMISTRY ORDERABLES Final Result [facility] [address] [place] [address] documented in this encounter Visit Diagnoses Diagnosis Nausea and vomiting- Primary Nausea with vomiting documented in this encounter Administered Medications Inactive Administered Medications - up to 3 most recent administrations Medication Order MAR Action Action Date Dose Rate Site 0.9 % sodium chloride solution at 999 mL/hr, Intravenous, ONCE, 1 dose, On Tue05/01/25 at 1200 New Bag 05/01/2025 11:40 AM CDT 999 mL/hr Prochlorperazine Edisylate (COMPAZINE) injection 10 mg 10 mg, Intravenous, ONCE, 1 dose, On Tue05/01/25 at 1200 Given 05/01/2025 11:39 AM CDT 10 mg documented in this encounter Active and Recently Administered Medications Times are shown in CDT. Scheduled Medication Order 04/29/2025 04/30/2025 05/01/2025 0.9 % sodium chloride solution (COMPLETED) at 999 mL/hr, Intravenous, ONCE, 1 dose, On Tue05/01/25 at 1200 1140 (New Bag - Prov ider: José Miguel Carreon RN)[id number] (Stopped - Provider: José Miguel Carreon RN) Prochlorperazine Edisylate (COMPAZINE) injection 10 mg (COMPLETED) 10 mg, Intravenous, ONCE, 1 dose, On Tue05/01/25 at 1200 1139 (Given - Provid er: José Miguel Carreon RN) documented in this encounter Care Teams Project Engineering Manager Relationship Specialty Start Date End Date Provider, None [place] PCP - General 05/01/25 documented as of this encounter
--- OUTSIDE RECORDS SUMMARY | 2025-05-01 18:14 | XMS_ITS | Patient Health Record ---
Author Organization [facility] Address [address] [place] [address] Care Team Providers Care Gun Profiler Name Role Phone Katalina Odom Primary Care Provider [phone] Reason For Referral No Information Medications Medication SIG (Take, Route, Fr equency, Duration) Notes Start Date End Date Status Vistaril 25 MG 1 capsule as needed Orally twice a day for 30 days Active PROzac 20 MG 1 capsule in the mor mercy Orally Once a day for 30 days 05/18/2016 Active Problems Problem Type SNOMED Code ICD Code Onset Dates Problem Status W/U Status Risk Notes Problem 405473234 Major depression (F32.9) Active confirmed Problem 95003123 Anxiety (F41.9) Active confirmed Plan Of Treatment No Information Insurance Providers Payer Name Payer Address Payer Phone Subscriber Number Group Number Insured Name Patient Relationship to Insured Coverage Start Date Coverage End Date [facility] [address] [address] [place] [address] [id number] Luz Maria Maya Self - patient is the insured 4
--- OUTSIDE RECORDS SUMMARY | 2025-05-01 18:14 | XMS_ITS | Clinical Summary ---
Author Organization [facility] Address [address] [place] [address] Phone Care Team Providers Care Fabrics And Material Cutter Name Role Phone Provider, None Primary Care Provider Unavailabl e Allergies No known active allergies Medications ondansetron (ZOFRAN-ODT) 4 MG TABLET DISPERSIBLE Take 1 Tablet by mouth every 6 hours as needed for Nausea - 1st line. 10 Tablet 2 Active cephALEXin (KEFLEX) 500 MG Capsule Take 500 mg by mouth 4 times daily. 5 025 Active prochlorperazin e (COMPAZINE) 5 MG TabletIndicatio ns:Nausea and Vomiting Take 1 Tablet by mouth every 6 hours as needed for Nausea - 1st line. Indications: Nausea and Vomiting 10 Tablet 5 Active triamcinolone (KENALOG) 0.1 % Cream Application Site: apply to affected area twice a day 60 g 8 025 Discontin ued(Med List Clean Up) ibuprofen (MOTRIN) 600 MG Tablet Take 1 Tab by mouth every 8 hours. 40 Tab 9 025 Discontin ued(Med List Clean Up) traMADol (ULTRAM) 50 MG TabletIndicatio ns:Abscess of great toe of right foot Take 1 Tablet by mouth every 6 hours as needed for Moderate or more severe pain. 12 Tablet 2 025 Discontin ued(Med List Clean Up) Encounters Date Type Department Care Team Description 05/01/2025 11:09 AM CDT - 05/01/2025 2:35 PM CDT Emergency [facility] Emergency [address] [place] [address] Axel Schmidt, PAC Nausea and vomiting Discharge Disposition: Discharged to home or Selfcare 05/01/2025 Travel from Last 3 Months Social History Tobacco Use Types Packs/Day Years Used Date Smoking Tobacco: Never Smokeless Tobacco: Never Alcohol Use Standard Drinks/Week Comments No 0 (1 standard drink = 0.6 oz pur e alcohol) Comments No Sex and Gender Information Value Date Recorded Sex Assigned at Not on file Legal Sex Female 5:41 PM CDT Gender Identity Not on file Sexual Orientation Not on file Last Filed Vital Signs Vital Sign Reading [...] Mass Index 77.04 05/01/2025 11:19 AM CDT Plan of Treatment Health Maintenance Due Date Last Done Comments Hepatitis C Virus (HCV) Screening 2004 Meningococcal B Immunization (1 of 2 - Standard) 2020 SARS-COV-2 Immunization ( season) 2024 Influenza Immunization (Season Ended) 2025 09/19/2015, 08/22/2013, 10/20/2012 Respiratory Syncytial Virus (RSV) Immunization (Adult) (1 - 1-dose 75+ series) 2079 Pneumococcal Immunization Combined Aged Out 08/13/2005, 04/07/2005, 02/09/2005 No longer eligible based on patient's age to complete this topic Hepatitis A Immunization Discontinued 006, 04/02/2006, 08/03/2005 Hepatitis B Immunization Completed 008, 08/13/2005, 04/07/2005, Additional history exists Polio (IPV) Immunization Discontinued 009, 07/22/2009, 08/13/2005, Additional history exists Measles Mumps Rubella (MMR) Immunization Discontinued 08/10/2010, 01/24/2006 Varicella Immunization Discontinued 08/10/2010, 2005 DTaP/Tdap/Td Immunization Discontinued 2015, 07/23/2009, 07/22/2009, Additional history exists TdaP Immunization Completed 06/03/2016 Human Papillomavirus (HPV) Immunization Completed 05/09/2018, 06/03/2016 Meningococcal Immunization (ACWY) Completed 01/26/2022, 06/03/2016 Rotavirus Immunization Aged Out No lo nger eligible based on patient's age to complete this topic Procedures Procedure Name Priority Date/Time Associated Diagnosis Comments URINE DRUG SCREEN STAT 05/01/2025 1:1 5 PM CDT URINALYSIS REFLEX IF INDICATED BY ABNORMAL RESULTS STAT 05/01/2025 1:15 PM CDT CBC WITH AUTO DIFFERENTIAL STAT 05/01/2025 11:30 AM CDT LIPASE STAT 05/01/2025 11:30 AM CDT CMP (COMPREHENSIVE METABOLIC PANEL) STAT 05/01/2025 11:30 AM CDT COMPLETE BLOOD COUNT (CBC) WITH DIFF STAT 05/01/2025 11:30 AM CDT from Last 3 Months Results * (ABNORMAL) Urinalysis w/ Reflex (05/01/2025 1:15 PM CDT) SPECIFIC GRAVITY 1.010 1.003 - 1.030 05/01/2025 2:07 PM CDT [facility] URINE PH 7.0 5.0 - 9.0 05/01/2025 2:07 PM CDT [facility] WBC ESTERASE 25 /ul(A) Negative 05/01/2025 2:07 PM CDT [facility] NITRITE Negative Negative 05/01/2025 2:07 PM CDT [facility] PROTEIN, RANDOM URINE 30 mg/dL(A) Negative 05/01/2025 2:07 PM CDT [facility] URINE GLUCOSE, QUAL Negative Negative 05/01/2025 2:07 PM CDT [facility] URINE KETONES 5 mg/dL(A) Negative 05/01/2025 2:07 PM CDT [facility] UROBILINOGEN Normal Normal mg/dL 05/01/2025 2:07 PM CDT [facility] URINE BLOOD 250 /uL(A) Negative brittany/ul 05/01/2025 2:07 PM CDT [facility] URINALYSIS COLOR Light Yellow 05/01/2025 2:07 PM CDT [facility] URINALYSIS CLARITY Clear 05/01/2025 2:07 PM CDT [facility] WBC (Urine) 0-5 Negative, 0-5 /hpf 05/01/2025 2:07 PM CDT [facility] URINE RBC'S 11-20(A) Negative, 0-2 /hpf 05/01/2025 2:07 PM CDT [facility] EPITHELIAL CELLS Occasional /lpf 05/01/2025 2:07 PM CDT [facility] BACTERIA, URINE Few(A) Negative /hpf 05/01/2025 2:07 PM CDT [facility] Urine URINE SPECIMEN / Unknown Non-Phlebotomy Collection / Unknown 05/01/2025 1:15 PM CDT 05/01/2025 1:28 PM CDT us Axel Schmidt PAC URINE ORDERABLES Fin al Result [facility] [address] [place] [address] * (ABNORMAL) Urine Drug Screen (05/01/2025 1:15 PM CDT) UR AMPHETAMINE NON DETECTED NON DETECTED 05/01/2025 2:01 PM CDT [facility] Comment: FOR MEDICAL USE ONLY. CUTOFF CONCENTRATION FOR DETECTED RESULT: AMPHETAMINE: 500 NG/ML UR BENZODIAZEPINES NON DETECTED NON DETECTED 05/01/2025 2:01 PM CDT [facility] Comment: FOR MEDICAL USE ONLY. CUTOFF CONCENTRATION FOR DETECTED RESULT: BENZODIAZAPINE: 200 NG/ML UR COCAINE METABOLITE NON DETECTED NON DETECTED 05/01/2025 2:01 PM CDT [facility] Comment: FOR MEDICAL USE ONLY. CUTOFF CONCENTRATION FOR DETECTED RESULT: COCAINE: 150 NG/ML UR OPIATES NON DETECTED NON DETECTED 05/01/2025 2:01 PM CDT [facility] Comment: FOR MEDICAL USE ONLY. CUTOFF CONCENTRATION FOR DETECTED RESULT: OPIATES: 300 NG/ML UR PHENCYCLIDINE NON DETECTED NON DETECTED 05/01/2025 2:01 PM CDT [facility] Comment: FOR MEDICAL USE ONLY. CUTOFF CONCENTRATION FOR DETECTED RESULT: PCP: 25 NG/ML UR CANNABINOID DETECTED(A) NON DETECTED 05/01/2025 2:01 PM CDT [facility] Comment: FOR MEDICAL USE ONLY. CUTOFF CONCENTRATION FOR DETECTED RESULT: THC (MARIJUANA): 50 NG/ML UR BARBITURATE NON DETECTED NON DETECTED 05/01/2025 2:01 PM CDT [facility] Comment: FOR MEDICAL USE ONLY. CUTOFF CONCENTRATION FOR DETECTED RESULT: BARBITUATES: 200 NG/ML UR FENTANYL NON DETECTED NON DETECTED 05/01/2025 2:01 PM CDT [facility] Comment: FOR MEDICAL USE ONLY. CUTOFF CONCENTRATION FOR DETECTED RESULT: FENTANYL: 1.0 NG/ML Urine Non-Phlebotomy Collection / Unknown 05/01/2025 1:15 PM CDT 05/01/2025 1:28 PM CDT us Axel Schmidt PAC URINE ORDERABLES Fin al Result [facility] [address] [place] [address] * (ABNORMAL) CBC with Auto Differential (05/01/2025 11:30 AM CDT) [facility] WBC 12.01(H) 4.00 - 12.00 10(3)/[facility] 05/01/2025 11:50 AM CDT [facility] RBC 4.88 3.80 - 5.30 10(6)/mcL 05/01/2025 11:50 AM CDT [facility] HEMOGLOBIN (HGB) 12.5 12.0 - 15.8 g/dL 05/01/2025 11:50 AM CDT [facility] HEMATOCRIT (HCT) 39.8 36.0 - 47.0 % 05/01/2025 11:50 AM CDT [facility] MCV 81.6(L) 82.0 - 96.0 fL 05/01/2025 11:50 AM CDT [facility] MCH 25.6(L) 26.0 - 34.0 pg 05/01/2025 11:50 AM CDT [facility] MCHC 31.4 31.0 - 36.0 g/dL 05/01/2025 11:50 AM CDT [facility] PLATELET COUNT 448(H) 140 - 440 10(3)/[facility] 05/01/2025 11:50 AM CDT [facility] RDW 15.7(H) 11.8 - 15.5 % 05/01/2025 11:50 AM CDT [facility] MPV 10.1 9.7 - 12.4 fL 05/01/2025 11:50 AM CDT [facility] NEUTROPHILS 80.5(H) 47.0 - 73.0 % 05/01/2025 11:50 AM CDT [facility] LYMPHOCYTES 14.3(L) 18.0 - 42.0 % 05/01/2025 11:50 AM CDT [facility] MONOCYTES 4.7 4.0 - 12.0 % 05/01/2025 11:50 AM CDT [facility] EOSINOPHILS 0.2 0.0 - 5.0 % 05/01/2025 11:50 AM CDT [facility] BASOPHILS 0.3 0.0 - 1.0 % 05/01/2025 11:50 AM CDT [facility] ABSOLUTE NEUTROPHILS 9.67(H) 1.60 - 7.70 10(3)/[facility] 05/01/2025 11:50 AM CDT [facility] ABSOLUTE LYMPHOCYTES 1.72 1.30 - 3.20 10(3)/[facility] 05/01/2025 11:50 AM CDT [facility] ABSOLUTE MONOCYTES 0.56 0.20 - 1.00 10(3)/[facility] 05/01/2025 11:50 AM CDT [facility] ABSOLUTE EOSINOPHIL 0.02 0.00 - 0.40 10(3)/[facility] 05/01/2025 11:50 AM CDT [facility] ABSOLUTE BASOPHILS 0.04 0.00 - 0.10 10(3)/[facility] 05/01/2025 11:50 AM CDT [facility] NRBC PER 100 WBC 0 05/01/20 11:50 AM CDT [facility] Blood Venipuncture / Unknown 05/01/2025 11:30 AM CDT 05/01/2025 11:45 AM CDT Axel Schmidt PAC HEMATOLOGY ORDERABLE S Final Result [facility] [address] [place] [address] * Lipase (05/01/2025 11:30 AM CDT) LIPASE 11 8 - 78 U/L 05/01/2025 12:08 PM CDT [facility] Blood Venipuncture / Unknown 05/01/2025 11:30 AM CDT 05/01/2025 11:45 AM CDT Axel Schmidt PAC CHEMISTRY ORDERABLES Final Result [facility] [address] [place] [address] * (ABNORMAL) CMP (05/01/2025 11:30 AM CDT) SODIUM 139 136 - 145 mmol/L 05/01/2025 12:08 PM CDT [facility] POTASSIUM 4.0 3.5 - 5.1 mmol/L 05/01/2025 12:08 PM CDT [facility] CHLORIDE 108(H) 98 - 107 mmol/L 05/01/2025 12:08 PM CDT [facility] CO2, VENOUS 23 22 - 30 mmol/L 05/01/2025 12:08 PM CDT [facility] ANION GAP 12.0 <18.0 mmol/L 05/01/2025 12:08 PM CDT [facility] GLUCOSE 122(H) 70 - 99 mg/dL 05/01/2025 12:08 PM CDT [facility] BUN 7 5 - 18 mg/dL 05/01/2025 12:08 PM CDT [facility] CREATININE, BLOOD 0.60 0.60 - 1.00 mg/dL 05/01/2025 12:08 PM CDT [facility] BUN/CREATININE RATIO 12 12 - 20 ratio 05/01/2025 12:08 PM CDT [facility] TOTAL PROTEIN 8.0 6.0 - 8.0 g/dL 05/01/2025 12:08 PM CDT [facility] ALBUMIN 3.9 3.5 - 5.0 g/dL 05/01/2025 12:08 PM CDT [facility] A/G RATIO 1.0 1.0 - 2.2 05/01/2025 12:08 PM CDT [facility] CALCIUM 8.9 8.7 - 10.5 mg/dL 05/01/2025 12:08 PM CDT [facility] T BILI 0.3 0.2 - 1.2 mg/dL 05/01/2025 12:08 PM CDT [facility] SGOT (AST) 19 <43 U/L 05/01/2025 12:08 PM CDT [facility] SGPT (ALT) 19 <56 U/L 05/01/2025 12:08 PM CDT [facility] ALKALINE PHOSPHATASE 69 40 - 150 U/L 05/01/2025 12:08 PM CDT [facility] GFR, ESTIMATED >60 >=60 05/01/2025 12:08 PM CDT [facility] Comment: Creatinine Clearance is the preferred criteria for selecting drug dose adjustments in renally impaired patients. The GFR is provided as additional pertinent clinical information. GFR is reported in mL/min/1.73 sq m. Calculation based on the Chronic Kidney Disease Epidemiology Collaboration (CKD- EPI) equation refit without adjustment for race. GFR, EST. >60 >=60 025 12:08 PM CDT [facility] GFR, EST. NONAFRICAN >60 >=60 05/01/2025 12:08 PM CDT [facility] Blood Venipuncture / Unknown 05/01/2025 11:30 AM CDT 05/01/2025 11:45 AM CDT us Axel Schmidt PAC CHEMISTRY ORDERABLES Final Result [facility] [address] [place] [address] from Last 3 Months Care Teams Fabrics And Material Cutter Relationship Specialty Start Date End Date Provider, None [place] PCP - General 05/01/25
--- OUTSIDE RECORDS SUMMARY | 2025-05-01 18:14 | XMS_ITS | Encounter Summary ---
Author Organization [facility] [employer] Care Team Providers Care Manager Trade Marketing Name Role Phone Provider, None Primary Care Provider Unavailabl e Encounter Details Date Type Department Care Team (Latest Contact Info) Description 05/01/2025 Travel Social History Tobacco Use Types Packs/Day Years [...] on file documented as of this encounter Plan of Treatment Not on file documented as of this encounter Visit Diagnoses Not on filedocumented in this encounter Care Teams Manager Trade Marketing Relationship Specialty Start Date End Date Provider, None TONNY PCP - General 05/01/25 documented as of this encounter
--- NOTE | 2025-05-01 18:33 | PC.NURSE ---
patient educated that a urine sample is needed, patient verbalizes understanding and will attempt to provide urine sample
[2025-05-01 18:34] LABS: Basophils Percent Auto 0.3 % (0.2-1.2); Eosinophils Percent Auto 0.2 % (0-4.4); Hematocrit 38.2 % (37.0-47.0); Hemoglobin 11.5 g/dL (12.0-15.0); Immature Granulocyte Absolute 0.08 K/mm3 (0.00-0.031); Immature Granulocyte Percent A 0.6 % (0-0.5); Lymphocytes Absolute Auto 1.92 K/mm3 (0.9-3.2); Lymphocytes Percent Auto 14.8 % (18.3-44.2); Mean Corpuscular HGB Conc 30.1 g/dl (32-36); Mean Corpuscular Hemoglobin 24.9 pg (26-34); Mean Corpuscular Volume 82.9 fl (80-100); Mean Platelet Volume 9.6 fl (7.4-10.4); Monocytes Absolute Auto 0.7 K/mm3 (0.1-0.6); Monocytes Percent Auto 5.5 % (2.6-8.5); Neutrophils Absolute Auto 10.2 K/mm3 (1.3-6.7); Neutrophils Percent Auto 78.6 % (45.5-73.1); Platelet Count Result 405 k/mm3 (150-375); Red Blood Count 4.61 M/mm3 (4.2-5.4); Red Cell Distribution Width 15.9 % (11.5-14.5); White Blood Count 12.9 K/mm3 (4.5-10.0)
[2025-05-01 18:49] LABS: Alanine Aminotransferase 24 U/L (6-35); Albumin Level 3.9 g/dL (3.5-5.1); Alkaline Phosphatase 72 U/L (38-126); Anion Gap 9 mmol/L (4-12); Aspartate Amino Transferase 25 U/L (14-36); Bilirubin,Total 0.3 mg/dL (0.2-1.3); Blood Urea Nitrogen 5 mg/dL (7-17); Calcium 8.7 mg/dL (8.4-10.2); Carbon Dioxide 23 mmol/L (22-30); Chloride 107 mmol/L (98-107); Estimated CRCL calculation 253 ml/min; Estimated Glomerular Filt Rate > 60; Glucose 116 mg/dL (65-110); Lipase 33 U/L (23-300); Potassium 3.4 mmol/L (3.4-5.0); Sodium 139 mmol/L (137-145); Total Protein 7.6 g/dL (6.3-8.2)
[2025-05-01 18:53] LABS: INR 1.2
[2025-05-01 18:54] LABS: Partial Thromboplastin Time 27.5 Seconds (22.3-36.8)
[2025-05-01] MEDS: SODIUM CHLORIDE 0.9% IV 1,000 ML 999 ML IV CONT (19:04)
[2025-05-01] MEDS: METOCLOPRAMIDE HCL INJ 10 MG/2 ML VIAL IV PUSH (19:04)
[2025-05-01] MEDS: diphenhydrAMINE HCl INJ 50 MG/ML VIAL 25 MG IV PUSH (19:04)
[2025-05-01 19:25] LABS: BEDSIDEPREGUCG Negative (Negative)
--- OUTSIDE RECORDS SUMMARY | 2025-05-01 19:43 | XMS_ITS | Encounter Summary ---
Author Organization [facility] Address [address] [place] [address] Phone Care Team Providers Care Health Lead Name Role Phone Provider, None Primary Care Provider Unavailabl e Reason for Visit * Reason Comments Nausea Encounter Details Date Type Department Care Team ([facility] st Contact Info) Description 05/01/2025 11:09 AM CDT - 05/01/2025 2:35 PM CDT Emergency [facility] Emergency [address] [place] [address] Axel Schmidt, PAC [address] [place] [address] Nausea and vomiting Discharge Disposition: Discharged to [...] videos and all your education online visit, [email or web address] or scan this QR code with your [...] juice). ? Low-calorie sports drinks. Eat bland, ysel-zw-fworpz foods in small amounts as you are able, such as: ? Bananas. ? Applesauce. ? Rice. ? Low-fat (lean) meats. ? [place]. ? Crackers. Avoid drinking fluids that have a lot of sugar or caffeine in them. This includes energy drinks, sports drinks, and soda. Avoid alcohol. Avoid spicy or fatty foods. General instructions Take xbjr-yok-qnutflp and prescription medicines only as told by your doctor. Drink enough fluid to keep your pee (urine) pale yellow. Wash your hands often with soap and water for at least 20 seconds. If you cannot use soap and water, use hand yarn carrier. Make sure that everyone in your home [...] your doctor about eating and drinking. Take zerd-mhp-eaooavn and prescription medicines only as told by [...] 2009-04-25 Document Updated: 2022-05-13 Document Reviewed: 2022-05-14 [employer] Patient Education ? 2024 [employer]. documented in this encounter Plan of Treatment [...] NON DETECTED 05/01/2025 2:01 PM CDT [facility] Comment: FOR MEDICAL USE ONLY. CUTOFF CONCENTRATION FOR DETECTED RESULT: AMPHETAMINE: 500 NG/ML UR BENZODIAZEPINES NON DETECTED NON DETECTED 05/01/2025 2:01 PM CDT [facility] Comment: FOR MEDICAL USE ONLY. CUTOFF CONCENTRATION FOR DETECTED RESULT: BENZODIAZAPINE: 200 NG/ML UR COCAINE METABOLITE NON DETECTED NON DETECTED 05/01/2025 2:01 PM CDT [facility] Comment: FOR MEDICAL USE ONLY. CUTOFF CONCENTRATION FOR DETECTED RESULT: COCAINE: 150 NG/ML UR OPIATES NON DETECTED NON DETECTED 05/01/2025 2:01 PM CDT [facility] Comment: FOR MEDICAL USE ONLY. CUTOFF CONCENTRATION FOR DETECTED RESULT: OPIATES: 300 NG/ML UR PHENCYCLIDINE NON DETECTED NON DETECTED 05/01/2025 2:01 PM CDT [facility] Comment: FOR MEDICAL USE ONLY. CUTOFF CONCENTRATION FOR DETECTED RESULT: PCP: 25 NG/ML UR CANNABINOID DETECTED(A) NON DETECTED 05/01/2025 2:01 PM CDT [facility] Comment: FOR MEDICAL USE ONLY. CUTOFF CONCENTRATION FOR DETECTED RESULT: THC (MARIJUANA): 50 NG/ML UR BARBITURATE NON DETECTED NON DETECTED 05/01/2025 2:01 PM CDT [facility] Comment: FOR MEDICAL USE ONLY. CUTOFF CONCENTRATION FOR DETECTED RESULT: BARBITUATES: 200 NG/ML UR FENTANYL NON DETECTED NON DETECTED 05/01/2025 2:01 PM CDT [facility] Comment: FOR MEDICAL USE ONLY. CUTOFF CONCENTRATION FOR DETECTED RESULT: FENTANYL: 1.0 NG/ML Urine Non-Phlebotomy Collection / Unknown 05/01/2025 1:15 PM CDT 05/01/2025 1:28 PM CDT Axel Schmidt PAC URINE ORDERABLES Fin al Result [facility] [address] [place] [address] * (ABNORMAL) Urinalysis w/ Reflex (05/01/2025 1:15 PM CDT) SPECIFIC GRAVITY 1.010 1.003 - 1.030 05/01/2025 2:07 PM CDT [facility] URINE PH 7.0 5.0 - 9.0 05/01/2025 2:07 PM CDT [facility] WBC ESTERASE 25 /ul(A) Negative 05/01/2025 2:07 PM CDT [facility] NITRITE Negative Negative 05/01/2025 2:07 PM CDT [facility] PROTEIN, RANDOM URINE 30 mg/dL(A) Negative 05/01/2025 2:07 PM CDT [facility] URINE GLUCOSE, QUAL Negative Negative 05/01/2025 2:07 PM CDT [facility] URINE KETONES 5 mg/dL(A) Negative 05/01/2025 2:07 PM CDT [facility] UROBILINOGEN Normal Normal mg/dL 05/01/2025 2:07 PM CDT [facility] URINE BLOOD 250 /uL(A) Negative brittany/ul 05/01/2025 2:07 PM CDT [facility] URINALYSIS COLOR Light Yellow 05/01/2025 2:07 PM CDT [facility] URINALYSIS CLARITY Clear 05/01/2025 2:07 PM CDT [facility] WBC (Urine) 0-5 Negative, 0-5 /hpf 05/01/2025 2:07 PM CDT [facility] URINE RBC'S 11-20(A) Negative, 0-2 /hpf 05/01/2025 2:07 PM CDT [facility] EPITHELIAL CELLS Occasional /lpf 05/01/2025 2:07 PM CDT [facility] BACTERIA, URINE Few(A) Negative /hpf 05/01/2025 2:07 PM CDT [facility] Urine URINE SPECIMEN / Unknown Non-Phlebotomy Collection / Unknown 05/01/2025 1:15 PM CDT 05/01/2025 1:28 PM CDT us Axel Schmidt PAC URINE ORDERABLES Fin al Result [facility] [address] [place] [address] * (ABNORMAL) CBC with Auto Differential (05/01/2025 11:30 AM CDT) [facility] Signature WBC 12.01(H) 4.00 - 12.00 10(3)/[facility] 05/01/2025 11:50 AM CDT [facility] RBC 4.88 3.80 - 5.30 10(6)/[facility] 05/01/2025 11:50 AM CDT [facility] HEMOGLOBIN (HGB) 12.5 12.0 - 15.8 g/dL 05/01/2025 11:50 AM CDT [facility] HEMATOCRIT (HCT) 39.8 36.0 - 47.0 % 05/01/2025 11:50 AM CDT [facility] MCV 81.6(L) 82.0 - 96.0 fL 05/01/2025 11:50 AM CDT [facility] MCH 25.6(L) 26.0 - 34.0 pg 05/01/2025 11:50 AM CDT [facility] MCHC 31.4 31.0 - 36.0 g/dL 05/01/2025 11:50 AM CDT [facility] PLATELET COUNT 448(H) 140 - 440 10(3)/[facility] 05/01/2025 11:50 AM CDT [facility] RDW 15.7(H) 11.8 - 15.5 % 05/01/2025 11:50 AM CDT [facility] MPV 10.1 9.7 - 12.4 fL 05/01/2025 11:50 AM CDT [facility] NEUTROPHILS 80.5(H) 47.0 - 73.0 % 05/01/2025 11:50 AM CDT [facility] LYMPHOCYTES 14.3(L) 18.0 - 42.0 % 05/01/2025 11:50 AM CDT [facility] MONOCYTES 4.7 4.0 - 12.0 % 05/01/2025 11:50 AM CDT [facility] EOSINOPHILS 0.2 0.0 - 5.0 % 05/01/2025 11:50 AM CDT [facility] BASOPHILS 0.3 0.0 - 1.0 % 05/01/2025 11:50 AM CDT [facility] ABSOLUTE NEUTROPHILS 9.67(H) 1.60 - 7.70 10(3)/[facility] 05/01/2025 11:50 AM CDT [facility] ABSOLUTE LYMPHOCYTES 1.72 1.30 - 3.20 10(3)/[facility] 05/01/2025 11:50 AM CDT [facility] ABSOLUTE MONOCYTES 0.56 0.20 - 1.00 10(3)/[facility] 05/01/2025 11:50 AM CDT [facility] ABSOLUTE EOSINOPHIL 0.02 0.00 - 0.40 10(3)/[facility] 05/01/2025 11:50 AM CDT [facility] ABSOLUTE BASOPHILS 0.04 0.00 - 0.10 10(3)/[facility] 05/01/2025 11:50 AM CDT [facility] NRBC PER 100 WBC 0 05/01/20 11:50 AM CDT [facility] Blood Venipuncture / Unknown 05/01/2025 11:30 AM CDT 05/01/2025 11:45 AM CDT Axel Schmidt PAC HEMATOLOGY ORDERABLE S Final Result Performing Organization Address City/[facility]/ZIP Co de Phone Number [facility] [address] [place] [address] * Lipase (05/01/2025 11:30 AM CDT) LIPASE 11 8 - 78 U/L 05/01/2025 12:08 PM CDT [facility] Blood Venipuncture / Unknown 05/01/2025 11:30 AM CDT 05/01/2025 11:45 AM CDT Axel Schmidt PAC CHEMISTRY ORDERABLES Final Result [facility] [address] [place] [address] * (ABNORMAL) CMP (05/01/2025 11:30 AM CDT) SODIUM 139 136 - 145 mmol/L 05/01/2025 12:08 PM CDT [facility] POTASSIUM 4.0 3.5 - 5.1 mmol/L 05/01/2025 12:08 PM CDT [facility] CHLORIDE 108(H) 98 - 107 mmol/L 05/01/2025 12:08 PM CDT [facility] CO2, VENOUS 23 22 - 30 mmol/L 05/01/2025 12:08 PM CDT [facility] ANION GAP 12.0 <18.0 mmol/L 05/01/2025 12:08 PM CDT [facility] GLUCOSE 122(H) 70 - 99 mg/dL 05/01/2025 12:08 PM CDT [facility] BUN 7 5 - 18 mg/dL 05/01/2025 12:08 PM CDT [facility] CREATININE, BLOOD 0.60 0.60 - 1.00 mg/dL 05/01/2025 12:08 PM CDT [facility] BUN/CREATININE RATIO 12 12 - 20 ratio 05/01/2025 12:08 PM CDT [facility] TOTAL PROTEIN 8.0 6.0 - 8.0 g/dL 05/01/2025 12:08 PM CDT [facility] ALBUMIN 3.9 3.5 - 5.0 g/dL 05/01/2025 12:08 PM CDT [facility] A/G RATIO 1.0 1.0 - 2.2 05/01/2025 12:08 PM CDT [facility] CALCIUM 8.9 8.7 - 10.5 mg/dL 05/01/2025 12:08 PM CDT [facility] T BILI 0.3 0.2 - 1.2 mg/dL 05/01/2025 12:08 PM CDT [facility] SGOT (AST) 19 <43 U/L 05/01/2025 12:08 PM CDT [facility] SGPT (ALT) 19 <56 U/L 05/01/2025 12:08 PM CDT [facility] ALKALINE PHOSPHATASE 69 40 - 150 U/L 05/01/2025 12:08 PM CDT [facility] GFR, ESTIMATED >60 >=60 05/01/2025 12:08 PM CDT [facility] Comment: Creatinine Clearance is the preferred criteria for selecting drug dose adjustments in renally impaired patients. The GFR is provided as additional pertinent clinical information. GFR is reported in mL/min/1.73 sq m. Calculation based on the Chronic Kidney Disease Epidemiology Collaboration (CKD- EPI) equation refit without adjustment for race. GFR, EST. >60 >=60 025 12:08 PM CDT [facility] GFR, EST. NONAFRICAN >60 >=60 05/01/2025 12:08 PM CDT [facility] Blood Venipuncture / Unknown 05/01/2025 11:30 AM CDT 05/01/2025 11:45 AM CDT Axel Schmidt PAC CHEMISTRY ORDERABLES Final Result [facility] [address] [place] [address] documented in this encounter Visit Diagnoses Diagnosis [...] RN) documented in this encounter Care Teams Health Lead Relationship Specialty Start Date End Date Provider, None [place] PCP - General 05/01/25 documented as of this encounter
--- OUTSIDE RECORDS SUMMARY | 2025-05-01 19:43 | XMS_ITS | Encounter Summary ---
Author Organization [employer] Care Team Providers Care Air Quality Chemist Name Role Phone Provider, None Primary Care [...] on filedocumented in this encounter Care Teams Air Quality Chemist Relationship Specialty Start Date End Date Provider, None TONNY PCP - General 05/01/25 documented as of this encounter
--- OUTSIDE RECORDS SUMMARY | 2025-05-01 19:43 | XMS_ITS | Clinical Summary ---
Author Organization [facility] Address [address] [place] [address] Phone Care Team Providers Care Commercial Drone Software Developer Name Role Phone Provider, None Primary Care [...] 05/01/2025 2:35 PM CDT Emergency [facility] Emergency [address] [place] [address] Axel Schmidt, PAC Nausea and vomiting Discharge [...] - 1.030 05/01/2025 2:07 PM CDT [facility] URINE PH 7.0 5.0 - 9.0 05/01/2025 2:07 PM CDT [facility] WBC ESTERASE 25 /ul(A) Negative 05/01/2025 2:07 PM CDT [facility] NITRITE Negative Negative 05/01/2025 2:07 PM [facility]T [facility] PROTEIN, RANDOM URINE 30 mg/dL(A) Negative 05/01/2025 2:07 PM CDT [facility] URINE GLUCOSE, QUAL Negative Negative 05/01/2025 2:07 PM CDT [facility] URINE KETONES 5 mg/dL(A) Negative 05/01/2025 2:07 PM CDT [facility] UROBILINOGEN Normal Normal mg/dL 05/01/2025 2:07 PM CDT [facility] URINE BLOOD 250 /uL(A) Negative brittany/ul 05/01/2025 2:07 PM CDT [facility] URINALYSIS COLOR Light Yellow 05/01/2025 2:07 PM CDT [facility] URINALYSIS CLARITY Clear 05/01/2025 2:07 PM CDT [facility] WBC (Urine) 0-5 Negative, 0-5 /hpf 05/01/2025 2:07 PM CDT [facility] URINE RBC'S 11-20(A) Negative, 0-2 /hpf 05/01/2025 2:07 PM CDT [facility] EPITHELIAL CELLS Occasional /lpf 05/01/2025 2:07 PM CDT [facility] BACTERIA, URINE Few(A) Negative /hpf 05/01/2025 2:07 PM CDT [facility] Urine URINE SPECIMEN / Unknown Non-Phlebotomy Collection / Unknown 05/01/2025 1:15 PM CDT 05/01/2025 1:28 PM CDT us Axel Schmidt PAC URINE ORDERABLES Fin al Result [facility] [address] [place] [address] * (ABNORMAL) Urine Drug Screen (05/01/2025 1:15 PM CDT) UR AMPHETAMINE NON DETECTED NON DETECTED 05/01/2025 2:01 PM CDT [facility] Comment: FOR MEDICAL USE ONLY. CUTOFF CONCENTRATION FOR DETECTED RESULT: AMPHETAMINE: 500 NG/ML UR BENZODIAZEPINES NON DETECTED NON DETECTED 05/01/2025 2:01 PM CDT [facility] Comment: FOR MEDICAL USE ONLY. CUTOFF CONCENTRATION FOR DETECTED RESULT: BENZODIAZAPINE: 200 NG/ML UR COCAINE METABOLITE NON DETECTED NON DETECTED 05/01/2025 2:01 PM CDT [facility] Comment: FOR MEDICAL USE ONLY. CUTOFF CONCENTRATION FOR DETECTED RESULT: COCAINE: 150 NG/ML UR OPIATES NON DETECTED NON DETECTED 05/01/2025 2:01 PM CDT [facility] Comment: FOR MEDICAL USE ONLY. CUTOFF CONCENTRATION FOR DETECTED RESULT: OPIATES: 300 NG/ML UR PHENCYCLIDINE NON DETECTED NON DETECTED 05/01/2025 2:01 PM CDT [facility] Comment: FOR MEDICAL USE ONLY. CUTOFF CONCENTRATION FOR DETECTED RESULT: PCP: 25 NG/ML UR CANNABINOID DETECTED(A) NON DETECTED 05/01/2025 2:01 PM CDT [facility] Comment: FOR MEDICAL USE ONLY. CUTOFF CONCENTRATION FOR DETECTED RESULT: THC (MARIJUANA): 50 NG/ML UR BARBITURATE NON DETECTED NON DETECTED 05/01/2025 2:01 PM CDT [facility] Comment: FOR MEDICAL USE ONLY. CUTOFF CONCENTRATION FOR DETECTED RESULT: BARBITUATES: 200 NG/ML UR FENTANYL NON DETECTED NON DETECTED 05/01/2025 2:01 PM CDT [facility] Comment: FOR MEDICAL USE ONLY. CUTOFF CONCENTRATION FOR DETECTED RESULT: FENTANYL: 1.0 NG/ML Urine Non-Phlebotomy Collection / Unknown 05/01/2025 1:15 PM CDT 05/01/2025 1:28 PM CDT us Axel Schmidt PAC URINE ORDERABLES Fin al Result [facility] [address] [place] [address] * (ABNORMAL) CBC with Auto Differential (05/01/2025 11:30 AM CDT) [facility] WBC 12.01(H) 4.00 - 12.00 10(3)/[facility] 05/01/2025 11:50 AM CDT [facility] RBC 4.88 3.80 - 5.30 10(6)/mcL 05/01/2025 11:50 AM CDT [facility] HEMOGLOBIN (HGB) 12.5 12.0 - 15.8 g/dL 05/01/2025 11:50 AM CDT [facility] HEMATOCRIT (HCT) 39.8 36.0 - 47.0 % 05/01/2025 11:50 AM CDT [facility] MCV 81.6(L) 82.0 - 96.0 fL 05/01/2025 11:50 AM CDT [facility] MCH 25.6(L) 26.0 - 34.0 pg 05/01/2025 11:50 AM CDT [facility] MCHC 31.4 31.0 - 36.0 g/dL 05/01/2025 11:50 AM CDT [facility] PLATELET COUNT 448(H) 140 - 440 10(3)/[facility] 05/01/2025 11:50 AM CDT [facility] RDW 15.7(H) 11.8 - 15.5 % 05/01/2025 11:50 AM CDT [facility] MPV 10.1 9.7 - 12.4 fL 05/01/2025 11:50 AM CDT [facility] NEUTROPHILS 80.5(H) 47.0 - 73.0 % 05/01/2025 11:50 AM CDT [facility] LYMPHOCYTES 14.3(L) 18.0 - 42.0 % 05/01/2025 11:50 AM CDT [facility] MONOCYTES 4.7 4.0 - 12.0 % 05/01/2025 11:50 AM CDT [facility] EOSINOPHILS 0.2 0.0 - 5.0 % 05/01/2025 11:50 AM CDT [facility] BASOPHILS 0.3 0.0 - 1.0 % 05/01/2025 11:50 AM CDT [facility] ABSOLUTE NEUTROPHILS 9.67(H) 1.60 - 7.70 10(3)/[facility] 05/01/2025 11:50 AM CDT [facility] ABSOLUTE LYMPHOCYTES 1.72 1.30 - 3.20 10(3)/[facility] 05/01/2025 11:50 AM CDT [facility] ABSOLUTE MONOCYTES 0.56 0.20 - 1.00 10(3)/[facility] 05/01/2025 11:50 AM CDT [facility] ABSOLUTE EOSINOPHIL 0.02 0.00 - 0.40 10(3)/[facility] 05/01/2025 11:50 AM CDT [facility] ABSOLUTE BASOPHILS 0.04 0.00 - 0.10 10(3)/[facility] 05/01/2025 11:50 AM CDT [facility] NRBC PER 100 WBC 0 05/01/20 11:50 AM CDT [facility] Blood Venipuncture / Unknown 05/01/2025 11:30 AM CDT 05/01/2025 11:45 AM CDT Axel Schmidt PAC HEMATOLOGY ORDERABLE S Final Result [facility] [address] [place] [address] * Lipase (05/01/2025 11:30 AM CDT) LIPASE 11 8 - 78 U/L 05/01/2025 12:08 PM CDT [facility] Blood Venipuncture / Unknown 05/01/2025 11:30 AM CDT 05/01/2025 11:45 AM CDT Axel Schmidt PAC CHEMISTRY ORDERABLES Final Result [facility] [address] [address] * (ABNORMAL) CMP (05/01/2025 11:30 AM CDT) SODIUM 139 136 - 145 mmol/L 05/01/2025 12:08 PM CDT [facility] POTASSIUM 4.0 3.5 - 5.1 mmol/L 05/01/2025 12:08 PM CDT [facility] CHLORIDE 108(H) 98 - 107 mmol/L 05/01/2025 12:08 PM CDT [facility] CO2, VENOUS 23 22 - 30 mmol/L 05/01/2025 12:08 PM CDT [facility] ANION GAP 12.0 <18.0 mmol/L 05/01/2025 12:08 PM CDT [facility] GLUCOSE 122(H) 70 - 99 mg/dL 05/01/2025 12:08 PM CDT [facility] BUN 7 5 - 18 mg/dL 05/01/2025 12:08 PM CDT [facility] CREATININE, BLOOD 0.60 0.60 - 1.00 mg/dL 05/01/2025 12:08 PM CDT [facility] BUN/CREATININE RATIO 12 12 - 20 ratio 05/01/2025 12:08 PM CDT [facility] TOTAL PROTEIN 8.0 6.0 - 8.0 g/dL 05/01/2025 12:08 PM CDT [facility] ALBUMIN 3.9 3.5 - 5.0 g/dL 05/01/2025 12:08 PM CDT [facility] A/G RATIO 1.0 1.0 - 2.2 05/01/2025 12:08 PM CDT [facility] CALCIUM 8.9 8.7 - 10.5 mg/dL 05/01/2025 12:08 PM CDT [facility] T BILI 0.3 0.2 - 1.2 mg/dL 05/01/2025 12:08 PM CDT [facility] SGOT (AST) 19 <43 U/L 05/01/2025 12:08 PM CDT [facility] SGPT (ALT) 19 <56 U/L 05/01/2025 12:08 PM CDT [facility] ALKALINE PHOSPHATASE 69 40 - 150 U/L 05/01/2025 12:08 PM CDT [facility] GFR, ESTIMATED >60 >=60 05/01/2025 12:08 PM CDT [facility] Comment: Creatinine Clearance is the preferred criteria for selecting drug dose adjustments in renally impaired patients. The GFR is provided as additional pertinent clinical information. GFR is reported in mL/min/1.73 sq m. Calculation based on the Chronic Kidney Disease Epidemiology Collaboration (CKD- EPI) equation refit without adjustment for race. GFR, EST. >60 >=60 025 12:08 PM CDT [facility] GFR, EST. NONAFRICAN >60 >=60 05/01/2025 12:08 PM CDT [facility] Blood Venipuncture / Unknown 05/01/2025 11:30 AM CDT 05/01/2025 11:45 AM CDT us Axel Schmidt PAC CHEMISTRY ORDERABLES Final Result [facility] [address] [place] [address] from Last 3 Months Care Teams Commercial Drone Software Developer Relationship Specialty Start Date End Date Provider, None [place] PCP - General 05/01/25
[2025-05-01 19:47] LABS: Amphetamine Screen Urine Negative (Negative); Barbiturate Screen Urine Negative (Negative); Benzodiazepines Screen Urine Negative (Negative); Cannabinoid Screen Urine Positive (Negative); Cocaine Screen Urine Negative (Negative); Methadone Screen Urine Negative (Negative); Opiate Screen Urine Negative (Negative); Phencyclidine Screen Urine Negative (Negative)
[2025-05-01 19:57] LABS: Add Urine Microscopic? YES; Appearance Urine Cloudy (Clear); Bacteria Urine 3+ /hpf; Bilirubin Urine Negative (Negative); Blood Urine 3+ (Negative); Color Urine Yellow (Yellow); Glucose Urine UA Negative (Negative); Ketones Urine 2+ mg/dL (Negative); Leukocyte Esterase Ur Trace LEU/UL (Negative); Need Manual Microscopic Reviewed; Nitrate Urine Negative (Negative); Non Pathogenic Casts 0-2; Protein Urine Trace mg/dL (Negative); RBC Urine 0-2 /hpf (0-2); Specific Grav Ur 1.018 (1.001-1.035); Squamous Epithelial Cell Urine Moderate /hpf (Few); Urobilinogen Urine 0.2 mg/dL (<2.0)
[2025-05-01] MEDS: NITROFURANTOIN MONOHYD MACROCR 100 MG CAP PO (23:21)
[2025-05-01 23:25] VITALS: BP 142/75; PULSE 89; RESP 17; TEMP 37.2; O2SAT 98
== END 2025-05-01 23:26 | disposition home or self-care (01) ==
PROVIDERS: Emergency Provider Registered Nurse
DX: K52.9 Noninfective gastroenteritis and colitis, unspecified (principal); N39.0 Urinary tract infection, site not specified; R11.2 Nausea with vomiting, unspecified; F12.90 Cannabis use, unspecified, uncomplicated; E28.2 Polycystic ovarian syndrome; K21.9 Gastro-esophageal reflux disease without esophagitis
CPT/HCPCS: 36415; 76705; 76830; 76856; 80053; 80307; 81001; 81025; 83605; 83690; 85025; 85610; 85730; 93005; 96361; 96374; 96375; 99284; A9270; J1200; J2765; J7030

== ENCOUNTER 2025-05-02 15:09 | Emergency (ER) | payer SELFPAY ==
[2025-05-02 15:23] VITALS: BP 171/103; PULSE 99; RESP 20; TEMP 36.4; O2SAT 98
[2025-05-02 15:31] LABS: Glucose Point of Care 110 mg/dl (65-105)
--- OUTSIDE RECORDS SUMMARY | 2025-05-02 15:44 | XMS_ITS | Encounter Summary ---
Author Organization [employer] Care Team Providers Care Corporate Affairs Manager Name Role Phone Provider, None Primary [...] on filedocumented in this encounter Care Teams Corporate Affairs Manager Relationship Specialty Start Date End Date Provider, None TONNY PCP - General 05/01/25 documented as of this encounter
--- OUTSIDE RECORDS SUMMARY | 2025-05-02 15:44 | XMS_ITS | Clinical Summary ---
Author Organization [facility] Address [address] [place] [address] Phone Care Team Providers Care Helpdesk Technician Name Role Phone Provider, None Primary Care [...] 05/01/2025 2:35 PM CDT Emergency [facility] Emergency [address] [place] [address] Axel Schmitd, PAC Nausea and vomiting Discharge Disposition: Discharged [...] - 1.030 05/01/2025 2:07 PM CDT [facility] URINE PH 7.0 5.0 - 9.0 05/01/2025 2:07 PM CDT [facility] WBC ESTERASE 25 /ul(A) Negative 05/01/2025 2:07 PM CDT [facility] NITRITE Negative Negative 05/01/2025 2:07 PM CDT [facility] PROTEIN, RANDOM URINE 30 mg/dL(A) Negative 05/01/2025 2:07 PM CDT [facility] URINE GLUCOSE, QUAL Negative Negative 05/01/2025 2:07 PM CDT [facility] URINE KETONES 5 mg/dL(A) Negative 05/01/2025 2:07 PM CDT [facility] UROBILINOGEN Normal Normal mg/dL 05/01/2025 2:07 PM CDT [facility] URINE BLOOD 250 /uL(A) Negative brittany/ul 05/01/2025 2:07 PM CDT [facility] URINALYSIS COLOR Light Yellow 05/01/2025 2:07 PM CDT [facility] URINALYSIS CLARITY Clear 05/01/2025 2:07 PM CDT [facility] WBC (Urine) 0-5 Negative, 0-5 /hpf 05/01/2025 2:07 PM CDT [facility] URINE RBC'S 11-20(A) Negative, 0-2 /hpf 05/01/2025 2:07 PM CDT [facility] EPITHELIAL CELLS Occasional /lpf 05/01/2025 2:07 PM CDT [facility] BACTERIA, URINE Few(A) Negative /hpf 05/01/2025 2:07 PM CDT [facility] Urine URINE SPECIMEN / Unknown Non-Phlebotomy Collection / Unknown 05/01/2025 1:15 PM CDT 05/01/2025 1:28 PM CDT us Axel Schmidt PAC URINE ORDERABLES Fin al Result [facility] [address] [place] [address] * (ABNORMAL) Urine Drug Screen (05/01/2025 1:15 PM CDT) UR AMPHETAMINE NON DETECTED NON DETECTED 05/01/2025 2:01 PM CDT [facility] Comment: FOR MEDICAL USE ONLY. CUTOFF CONCENTRATION FOR DETECTED RESULT: AMPHETAMINE: 500 NG/ML UR BENZODIAZEPINES NON DETECTED NON DETECTED 05/01/2025 2:01 PM CDT [facility] Comment: FOR MEDICAL USE ONLY. CUTOFF CONCENTRATION FOR DETECTED RESULT: BENZODIAZAPINE: 200 NG/ML UR COCAINE METABOLITE NON DETECTED NON DETECTED 05/01/2025 2:01 PM CDT [facility] Comment: FOR MEDICAL USE ONLY. CUTOFF CONCENTRATION FOR DETECTED RESULT: COCAINE: 150 NG/ML UR OPIATES NON DETECTED NON DETECTED 05/01/2025 2:01 PM CDT [facility] Comment: FOR MEDICAL USE ONLY. CUTOFF CONCENTRATION FOR DETECTED RESULT: OPIATES: 300 NG/ML UR PHENCYCLIDINE NON DETECTED NON DETECTED 05/01/2025 2:01 PM CDT [facility] Comment: FOR MEDICAL USE ONLY. CUTOFF CONCENTRATION FOR DETECTED RESULT: PCP: 25 NG/ML UR CANNABINOID DETECTED(A) NON DETECTED 05/01/2025 2:01 PM CDT [facility] Comment: FOR MEDICAL USE ONLY. CUTOFF CONCENTRATION FOR DETECTED RESULT: THC (MARIJUANA): 50 NG/ML UR BARBITURATE NON DETECTED NON DETECTED 05/01/2025 2:01 PM CDT [facility] Comment: FOR MEDICAL USE ONLY. CUTOFF CONCENTRATION FOR DETECTED RESULT: BARBITUATES: 200 NG/ML UR FENTANYL NON DETECTED NON DETECTED 05/01/2025 2:01 PM CDT [facility] Comment: FOR MEDICAL USE ONLY. CUTOFF CONCENTRATION FOR DETECTED RESULT: FENTANYL: 1.0 NG/ML Urine Non-Phlebotomy Collection / Unknown 05/01/2025 1:15 PM CDT 05/01/2025 1:28 PM CDT us Axel Schmidt PAC URINE ORDERABLES Fin al Result [facility] [address] [place] [address] * (ABNORMAL) CBC with Auto Differential (05/01/2025 11:30 AM CDT) [facility] WBC 12.01(H) 4.00 - 12.00 10(3)/[facility] 05/01/2025 11:50 AM CDT [facility] RBC 4.88 3.80 - 5.30 10(6)/mcL 05/01/2025 11:50 AM CDT [facility] HEMOGLOBIN (HGB) 12.5 12.0 - 15.8 g/dL 05/01/2025 11:50 AM CDT [facility] HEMATOCRIT (HCT) 39.8 36.0 - 47.0 % 05/01/2025 11:50 AM CDT [facility] MCV 81.6(L) 82.0 - 96.0 fL 05/01/2025 11:50 AM CDT [facility] MCH 25.6(L) 26.0 - 34.0 pg 05/01/2025 11:50 AM CDT [facility] MCHC 31.4 31.0 - 36.0 g/dL 05/01/2025 11:50 AM CDT [facility] PLATELET COUNT 448(H) 140 - 440 10(3)/[facility] 05/01/2025 11:50 AM CDT [facility] RDW 15.7(H) 11.8 - 15.5 % 05/01/2025 11:50 AM CDT [facility] MPV 10.1 9.7 - 12.4 fL 05/01/2025 11:50 AM CDT [facility] NEUTROPHILS 80.5(H) 47.0 - 73.0 % 05/01/2025 11:50 AM CDT [facility] LYMPHOCYTES 14.3(L) 18.0 - 42.0 % 05/01/2025 11:50 AM CDT [facility] MONOCYTES 4.7 4.0 - 12.0 % 05/01/2025 11:50 AM CDT [facility] EOSINOPHILS 0.2 0.0 - 5.0 % 05/01/2025 11:50 AM CDT [facility] BASOPHILS 0.3 0.0 - 1.0 % 05/01/2025 11:50 AM CDT [facility] ABSOLUTE NEUTROPHILS 9.67(H) 1.60 - 7.70 10(3)/[facility] 05/01/2025 11:50 AM CDT [facility] ABSOLUTE LYMPHOCYTES 1.72 1.30 - 3.20 10(3)/[facility] 05/01/2025 11:50 AM CDT [facility] ABSOLUTE MONOCYTES 0.56 0.20 - 1.00 10(3)/[facility] 05/01/2025 11:50 AM CDT [facility] ABSOLUTE EOSINOPHIL 0.02 0.00 - 0.40 10(3)/[facility] 05/01/2025 11:50 AM CDT [facility] ABSOLUTE BASOPHILS 0.04 0.00 - 0.10 10(3)/[facility] 05/01/2025 11:50 AM CDT [facility] NRBC PER 100 WBC 0 05/01/20 11:50 AM CDT [facility] Blood Venipuncture / Unknown 05/01/2025 11:30 AM CDT 05/01/2025 11:45 AM CDT Axel Schmidt PAC HEMATOLOGY ORDERABLE S Final Result [facility] [address] [place] [address] * Lipase (05/01/2025 11:30 AM CDT) LIPASE 11 8 - 78 U/L 05/01/2025 12:08 PM CDT [facility] Blood Venipuncture / Unknown 05/01/2025 11:30 AM CDT 05/01/2025 11:45 AM CDT Axel Schmidt PAC CHEMISTRY ORDERABLES Final Result [facility] [address] [place] [address] * (ABNORMAL) CMP (05/01/2025 11:30 AM CDT) SODIUM 139 136 - 145 mmol/L 05/01/2025 12:08 PM CDT [facility] POTASSIUM 4.0 3.5 - 5.1 mmol/L 05/01/2025 12:08 PM CDT [facility] CHLORIDE 108(H) 98 - 107 mmol/L 05/01/2025 12:08 PM CDT [facility] CO2, VENOUS 23 22 - 30 mmol/L 05/01/2025 12:08 PM CDT [facility] ANION GAP 12.0 <18.0 mmol/L 05/01/2025 12:08 PM CDT [facility] GLUCOSE 122(H) 70 - 99 mg/dL 05/01/2025 12:08 PM CDT [facility] BUN 7 5 - 18 mg/dL 05/01/2025 12:08 PM CDT [facility] CREATININE, BLOOD 0.60 0.60 - 1.00 mg/dL 05/01/2025 12:08 PM CDT [facility] BUN/CREATININE RATIO 12 12 - 20 ratio 05/01/2025 12:08 PM CDT [facility] TOTAL PROTEIN 8.0 6.0 - 8.0 g/dL 05/01/2025 12:08 PM CDT [facility] ALBUMIN 3.9 3.5 - 5.0 g/dL 05/01/2025 12:08 PM CDT [facility] A/G RATIO 1.0 1.0 - 2.2 05/01/2025 12:08 PM CDT [facility] CALCIUM 8.9 8.7 - 10.5 mg/dL 05/01/2025 12:08 PM CDT [facility] T BILI 0.3 0.2 - 1.2 mg/dL 05/01/2025 12:08 PM CDT [facility] SGOT (AST) 19 <43 U/L 05/01/2025 12:08 PM CDT [facility] SGPT (ALT) 19 <56 U/L 05/01/2025 12:08 PM CDT [facility] ALKALINE PHOSPHATASE 69 40 - 150 U/L 05/01/2025 12:08 PM CDT [facility] GFR, ESTIMATED >60 >=60 05/01/2025 12:08 PM CDT [facility] Comment: Creatinine Clearance is the preferred criteria for selecting drug dose adjustments in renally impaired patients. The GFR is provided as additional pertinent clinical information. GFR is reported in mL/min/1.73 sq m. Calculation based on the Chronic Kidney Disease Epidemiology Collaboration (CKD- EPI) equation refit without adjustment for race. GFR, EST. >60 >=60 025 12:08 PM CDT [facility] GFR, EST. NONAFRICAN >60 >=60 05/01/2025 12:08 PM CDT [facility] Blood Venipuncture / Unknown 05/01/2025 11:30 AM CDT 05/01/2025 11:45 AM CDT us Axel Schmidt PAC CHEMISTRY ORDERABLES Final Result [facility] [address] [place] [address] from Last 3 Months Care Teams Helpdesk Technician Relationship Specialty Start Date End Date Provider, None [place] PCP - General 05/01/25
--- OUTSIDE RECORDS SUMMARY | 2025-05-02 15:44 | XMS_ITS | Encounter Summary ---
Author Organization [facility] Address [address] [place] [address] Phone Care Team Providers Care Office Correspondent Name Role Phone Provider, None Primary Care Provider Unavailabl e Reason for Visit * Reason Comments Nausea Encounter Details Date Type Department Care Team ([facility] st Contact Info) Description 05/01/2025 11:09 AM CDT - 05/01/2025 2:35 PM CDT Emergency [facility] [address] [place] [address] Axel Schmidt, PAC [address] [place] [address] Nausea and vomiting Discharge Disposition: Discharged to [...] videos and all your education online visit, [email or web address] or scan this QR code with your [...] juice). ? Low-calorie sports drinks. Eat bland, jclb-xp-jjaaon foods in small amounts as you are able, such as: ? Bananas. ? Applesauce. ? Rice. ? Low-fat (lean) meats. ? Aquilla. ? Crackers. Avoid drinking fluids that have a lot of sugar or caffeine in them. This includes energy drinks, sports drinks, and soda. Avoid alcohol. Avoid spicy or fatty foods. General instructions Take wiim-cja-jfkpltp and prescription medicines only as told by your doctor. Drink enough fluid to keep your pee (urine) pale yellow. Wash your hands often with soap and water for at least 20 seconds. If you cannot use soap and water, use hand neighborhood aide. Make sure that everyone in your home [...] your doctor about eating and drinking. Take feha-hzp-lraewoo and prescription medicines only as told by [...] 2009-04-25 Document Updated: 2022-05-13 Document Reviewed: 2022-05-14 [employer] Patient Education ? 2024 Jaco Solarsi. documented in this encounter Plan of Treatment [...] NON DETECTED 05/01/2025 2:01 PM CDT [facility] Comment: FOR MEDICAL USE ONLY. CUTOFF CONCENTRATION FOR DETECTED RESULT: AMPHETAMINE: 500 NG/ML UR BENZODIAZEPINES NON DETECTED NON DETECTED 05/01/2025 2:01 PM CDT [facility] Comment: FOR MEDICAL USE ONLY. CUTOFF CONCENTRATION FOR DETECTED RESULT: BENZODIAZAPINE: 200 NG/ML UR COCAINE METABOLITE NON DETECTED NON DETECTED 05/01/2025 2:01 PM CDT [facility] Comment: FOR MEDICAL USE ONLY. CUTOFF CONCENTRATION FOR DETECTED RESULT: COCAINE: 150 NG/ML UR OPIATES NON DETECTED NON DETECTED 05/01/2025 2:01 PM CDT [facility] Comment: FOR MEDICAL USE ONLY. CUTOFF CONCENTRATION FOR DETECTED RESULT: OPIATES: 300 NG/ML UR PHENCYCLIDINE NON DETECTED NON DETECTED 05/01/2025 2:01 PM CDT [facility] Comment: FOR MEDICAL USE ONLY. CUTOFF CONCENTRATION FOR DETECTED RESULT: PCP: 25 NG/ML UR CANNABINOID DETECTED(A) NON DETECTED 05/01/2025 2:01 PM CDT [facility] Comment: FOR MEDICAL USE ONLY. CUTOFF CONCENTRATION FOR DETECTED RESULT: THC (MARIJUANA): 50 NG/ML UR BARBITURATE NON DETECTED NON DETECTED 05/01/2025 2:01 PM CDT [facility] Comment: FOR MEDICAL USE ONLY. CUTOFF CONCENTRATION FOR DETECTED RESULT: BARBITUATES: 200 NG/ML UR FENTANYL NON DETECTED NON DETECTED 05/01/2025 2:01 PM CDT [facility] Comment: FOR MEDICAL USE ONLY. CUTOFF CONCENTRATION FOR DETECTED RESULT: FENTANYL: 1.0 NG/ML Urine Non-Phlebotomy Collection / Unknown 05/01/2025 1:15 PM CDT 05/01/2025 1:28 PM CDT Axel Schmidt PAC URINE ORDERABLES Fin al Result [facility] [address] [place] [address] * (ABNORMAL) Urinalysis w/ Reflex (05/01/2025 1:15 PM CDT) SPECIFIC GRAVITY 1.010 1.003 - 1.030 05/01/2025 2:07 PM CDT [facility] URINE PH 7.0 5.0 - 9.0 05/01/2025 2:07 PM CDT [facility] WBC ESTERASE 25 /ul(A) Negative 05/01/2025 2:07 PM CDT [facility] NITRITE Negative Negative 05/01/2025 2:07 PM CDT [facility] PROTEIN, RANDOM URINE 30 mg/dL(A) Negative 05/01/2025 2:07 PM CDT [facility] URINE GLUCOSE, QUAL Negative Negative 05/01/2025 2:07 PM CDT [facility] URINE KETONES 5 mg/dL(A) Negative 05/01/2025 2:07 PM CDT [facility] UROBILINOGEN Normal Normal mg/dL 05/01/2025 2:07 PM CDT [facility] URINE BLOOD 250 /uL(A) Negative brittany/ul 05/01/2025 2:07 PM CDT [facility] URINALYSIS COLOR Light Yellow 05/01/2025 2:07 PM CDT [facility] URINALYSIS CLARITY Clear 05/01/2025 2:07 PM CDT [facility] WBC (Urine) 0-5 Negative, 0-5 /hpf 05/01/2025 2:07 PM CDT [facility] URINE RBC'S 11-20(A) Negative, 0-2 /hpf 05/01/2025 2:07 PM CDT [facility] EPITHELIAL CELLS Occasional /lpf 05/01/2025 2:07 PM CDT [facility] BACTERIA, URINE Few(A) Negative /hpf 05/01/2025 2:07 PM CDT [facility] Urine URINE SPECIMEN / Unknown Non-Phlebotomy Collection / Unknown 05/01/2025 1:15 PM CDT 05/01/2025 1:28 PM CDT us Axel Schmidt PAC URINE ORDERABLES Fin al Result [facility] [address] [place] [address] * (ABNORMAL) CBC with Auto Differential (05/01/2025 11:30 AM CDT) [facility] Signature WBC 12.01(H) 4.00 - 12.00 10(3)/[facility] 05/01/2025 11:50 AM CDT [facility] RBC 4.88 3.80 - 5.30 10(6)/[facility] 05/01/2025 11:50 AM CDT [facility] HEMOGLOBIN (HGB) 12.5 12.0 - 15.8 g/dL 05/01/2025 11:50 AM CDT [facility] HEMATOCRIT (HCT) 39.8 36.0 - 47.0 % 05/01/2025 11:50 AM CDT [facility] MCV 81.6(L) 82.0 - 96.0 fL 05/01/2025 11:50 AM CDT [facility] MCH 25.6(L) 26.0 - 34.0 pg 05/01/2025 11:50 AM CDT [facility] MCHC 31.4 31.0 - 36.0 g/dL 05/01/2025 11:50 AM CDT [facility] PLATELET COUNT 448(H) 140 - 440 10(3)/[facility] 05/01/2025 11:50 AM CDT [facility] RDW 15.7(H) 11.8 - 15.5 % 05/01/2025 11:50 AM CDT [facility] MPV 10.1 9.7 - 12.4 fL 05/01/2025 11:50 AM CDT [facility] NEUTROPHILS 80.5(H) 47.0 - 73.0 % 05/01/2025 11:50 AM CDT [facility] LYMPHOCYTES 14.3(L) 18.0 - 42.0 % 05/01/2025 11:50 AM CDT [facility] MONOCYTES 4.7 4.0 - 12.0 % 05/01/2025 11:50 AM CDT [facility] EOSINOPHILS 0.2 0.0 - 5.0 % 05/01/2025 11:50 AM CDT [facility] BASOPHILS 0.3 0.0 - 1.0 % 05/01/2025 11:50 AM CDT [facility] ABSOLUTE NEUTROPHILS 9.67(H) 1.60 - 7.70 10(3)/[facility] 05/01/2025 11:50 AM CDT [facility] ABSOLUTE LYMPHOCYTES 1.72 1.30 - 3.20 10(3)/[facility] 05/01/2025 11:50 AM CDT [facility] ABSOLUTE MONOCYTES 0.56 0.20 - 1.00 10(3)/[facility] 05/01/2025 11:50 AM CDT [facility] ABSOLUTE EOSINOPHIL 0.02 0.00 - 0.40 10(3)/[facility] 05/01/2025 11:50 AM CDT [facility] ABSOLUTE BASOPHILS 0.04 0.00 - 0.10 10(3)/[facility] 05/01/2025 11:50 AM CDT [facility] NRBC PER 100 WBC 0 05/01/20 11:50 AM CDT [facility] Blood Venipuncture / Unknown 05/01/2025 11:30 AM CDT 05/01/2025 11:45 AM CDT Axel Schmidt PAC HEMATOLOGY ORDERABLE S Final Result Performing Organization Address City/[facility]/ZIP Co de Phone Number [facility] [address] [place] [address] * Lipase (05/01/2025 11:30 AM CDT) LIPASE 11 8 - 78 U/L 05/01/2025 12:08 PM CDT [facility] Blood Venipuncture / Unknown 05/01/2025 11:30 AM CDT 05/01/2025 11:45 AM CDT Axel Schmidt PAC CHEMISTRY ORDERABLES Final Result [facility] [address] [place] [address] * (ABNORMAL) CMP (05/01/2025 11:30 AM CDT) SODIUM 139 136 - 145 mmol/L 05/01/2025 12:08 PM CDT [facility] POTASSIUM 4.0 3.5 - 5.1 mmol/L 05/01/2025 12:08 PM CDT [facility] CHLORIDE 108(H) 98 - 107 mmol/L 05/01/2025 12:08 PM CDT [facility] CO2, VENOUS 23 22 - 30 mmol/L 05/01/2025 12:08 PM CDT [facility] ANION GAP 12.0 <18.0 mmol/L 05/01/2025 12:08 PM CDT [facility] GLUCOSE 122(H) 70 - 99 mg/dL 05/01/2025 12:08 PM CDT [facility] BUN 7 5 - 18 mg/dL 05/01/2025 12:08 PM CDT [facility] CREATININE, BLOOD 0.60 0.60 - 1.00 mg/dL 05/01/2025 12:08 PM CDT [facility] BUN/CREATININE RATIO 12 12 - 20 ratio 05/01/2025 12:08 PM CDT [facility] TOTAL PROTEIN 8.0 6.0 - 8.0 g/dL 05/01/2025 12:08 PM CDT [facility] ALBUMIN 3.9 3.5 - 5.0 g/dL 05/01/2025 12:08 PM CDT [facility] A/G RATIO 1.0 1.0 - 2.2 05/01/2025 12:08 PM CDT [facility] CALCIUM 8.9 8.7 - 10.5 mg/dL 05/01/2025 12:08 PM CDT [facility] T BILI 0.3 0.2 - 1.2 mg/dL 05/01/2025 12:08 PM CDT [facility] SGOT (AST) 19 <43 U/L 05/01/2025 12:08 PM CDT [facility] SGPT (ALT) 19 <56 U/L 05/01/2025 12:08 PM CDT [facility] ALKALINE PHOSPHATASE 69 40 - 150 U/L 05/01/2025 12:08 PM CDT [facility] GFR, ESTIMATED >60 >=60 05/01/2025 12:08 PM CDT [facility] Comment: Creatinine Clearance is the preferred criteria for selecting drug dose adjustments in renally impaired patients. The GFR is provided as additional pertinent clinical information. GFR is reported in mL/min/1.73 sq m. Calculation based on the Chronic Kidney Disease Epidemiology Collaboration (CKD- EPI) equation refit without adjustment for race. GFR, EST. >60 >=60 025 12:08 PM CDT [facility] GFR, EST. NONAFRICAN >60 >=60 05/01/2025 12:08 PM CDT [facility] Blood Venipuncture / Unknown 05/01/2025 11:30 AM CDT 05/01/2025 11:45 AM CDT Axel Schmidt PAC CHEMISTRY ORDERABLES Final Result [facility] [address] [place] [address] documented in this encounter Visit Diagnoses Diagnosis [...] RN) documented in this encounter Care Teams Office Correspondent Relationship Specialty Start Date End Date Provider, None [place] PCP - General 05/01/25 documented as of this encounter
--- OUTSIDE RECORDS SUMMARY | 2025-05-02 15:44 | XMS_ITS | Patient Health Record ---
Author Organization [facility] Address [address] [place] [address] Care Team Providers Care Engineer Chief Name Role Phone Katalina Odom Primary Care Provider Reason For Referral No Information Medications Medication [...] Problem Status W/U Status Risk Notes Problem [id number] Major depression (F32.9) Active confirmed Problem [id number] Anxiety (F41.9) Active confirmed Plan Of Treatment No Information Insurance Providers Payer Name Payer Address Payer Phone Subscriber Number Group Number Insured Name Patient Relationship to Insured Coverage Start Date Coverage End Date [facility] [address] [address] [place] [address] [id number] Luz Maria Maya Self - patient is the insured 4
[2025-05-02 15:48] LABS: Basophils Percent Auto 0.2 % (0.2-1.2); Eosinophils Percent Auto 0.3 % (0-4.4); Hematocrit 39.8 % (37.0-47.0); Hemoglobin 12.4 g/dL (12.0-15.0); Immature Granulocyte Absolute 0.12 K/mm3 (0.00-0.031); Lymphocytes Absolute Auto 1.53 K/mm3 (0.9-3.2); Lymphocytes Percent Auto 12.4 % (18.3-44.2); Mean Corpuscular HGB Conc 31.2 g/dl (32-36); Mean Corpuscular Hemoglobin 25.6 pg (26-34); Mean Corpuscular Volume 82.2 fl (80-100); Mean Platelet Volume 9.8 fl (7.4-10.4); Monocytes Absolute Auto 0.7 K/mm3 (0.1-0.6); Monocytes Percent Auto 5.7 % (2.6-8.5); Neutrophils Absolute Auto 9.9 K/mm3 (1.3-6.7); Neutrophils Percent Auto 80.4 % (45.5-73.1); Platelet Count Result 432 k/mm3 (150-375); Red Blood Count 4.84 M/mm3 (4.2-5.4); White Blood Count 12.3 K/mm3 (4.5-10.0)
[2025-05-02 15:58] LABS: Alanine Aminotransferase 28 U/L (6-35); Albumin Level 4.4 g/dL (3.5-5.1); Alkaline Phosphatase 86 U/L (38-126); Anion Gap 9 mmol/L (4-12); Aspartate Amino Transferase 30 U/L (14-36); Bilirubin,Total 0.5 mg/dL (0.2-1.3); Blood Urea Nitrogen 4 mg/dL (7-17); Calcium 9.4 mg/dL (8.4-10.2); Carbon Dioxide 24 mmol/L (22-30); Chloride 105 mmol/L (98-107); Estimated CRCL calculation 237 ml/min; Estimated Glomerular Filt Rate > 60; Glucose 120 mg/dL (65-110); Lipase 36 U/L (23-300); Potassium 3.7 mmol/L (3.4-5.0); Sodium 138 mmol/L (137-145); Total Protein 8.4 g/dL (6.3-8.2)
--- NOTE | 2025-05-02 16:16 | ED.NAVMDI ---
HPI - Nausea/Vomiting/Diarrhea General Chief complaint: Nausea/Vomiting/Diarrhea Stated complaint: vomiting Time Seen by Provider: 05/02/25 15:28 Source: patient Mode of arrival: ambulatory Limitations: no limitations History of Present Illness HPI Narrative: This is a 19-year-old female previously seen in this emergency department yesterday, who returns to the emergency department complaining of persistent nausea, vomiting and abdominal pain. The patient states for the past 5 days she has had the symptoms. She describes the pain as cramping and sore, greatest in the epigastrium without radiation. It is exacerbated by vomiting or lying back. She denies chest pain, shortness of breath loss of consciousness. She denies bleeding of any kind. She states after receiving IV antiemetics and fluids in the emergency department her symptoms improved, however she was unable to order picker/assembler outpatient medications and her symptoms recurred. She has no other complaints at this time. Related Data Allergies Allergy/AdvReac Type Severity Reaction Status Date / Time No Known Allergies Allergy Verified 06/12/16 17:09 Review of Systems Review of Systems: All systems reviewed & are unremarkable except as noted in HPI and below PMFSH Past Medical History Medical History No significant past medical history Surgical History Surgical History No significant past surgical history Social History Social History Smoking status: Never smoker Alcohol intake: never Substance use type: marijuana Exam Narrative: GENERAL: Well-developed, well-nourished, and in no acute distress. Appears uncomfortable. Morbidly obese HEAD: Normocephalic, atraumatic. EYES: PERRLA and EOMI. CHEST: Clear to auscultation. No respiratory distress. No wheezes rales or rhonchi HEART: Regular rate and rhythm. No murmur heard. Normal peripheral pulses. ABDOMEN: Soft, diffuse tenderness to palpation, greater in the epigastrium, without rebound or guarding, nondistended, normal active bowel sounds. No CVA tenderness EXTREMITIES: Normal range of motion. No edema. SKIN: Warm, dry, no rash. NEURO: Alert and oriented x3. No focal deficit. Moving all 4 limbs spontaneously PSYCH: Normal mood and affect. Course Course Emergency Course: 16:18 - Reviewed prior documentation shows patient had an elevated white blood cell count of 12. Right upper quadrant ultrasound done yesterday showed gallbladder sludge with out pericholecystic fluid or Greene sign. 18:44 - White blood cell count 12.3 down slightly from 12.9. CBC otherwise unremarkable. Chemistries demonstrate mildly elevated blood glucose of 120 but is otherwise unremarkable. The patient tolerated oral fluids. She is somewhat drowsy from IV Compazine. Her was able to order picker/assembler her nausea medications and antibiotics. Will discharge with recommendation for use of the same and primary care follow-up. I discussed the findings and recommendations with the patient and her spouse. Discussed return and emergency precautions including signs/symptoms of acute abdomen and intractable vomiting. The patient and her spouse voiced understanding and agreement with the plan. All questions answered to their satisfaction. Vital Signs Vital signs: Vital Signs Temperature 97.6 F 05/02/25 15:23 Pulse Rate 99 05/02/25 15:23 Respiratory Rate 20 05/02/25 15:23 Blood Pressure 171/103 H 05/02/25 15:23 Pulse Oximetry 98 05/02/25 15:23 Oxygen Delivery Room Air 05/02/25 15:23 Temperature 97.6 F 05/02/25 15:23 Pulse Rate 99 05/02/25 15:23 Respiratory Rate 20 05/02/25 15:23 Blood Pressure 171/103 H 05/02/25 15:23 Pulse Oximetry 98 05/02/25 15:23 Oxygen Delivery Room Air 05/02/25 15:23 MDM - Nausea/Vomiting/Diarrhea MDM Narrative Medical decision making narrative: Plan: Labs, IV fluids, antiemetics, reassess Differential Diagnosis Differential diagnosis: Likely gastroenteritis, dehydration and other (UTI, metabolic abnormality, other) Lab Data 05/02/25 15:43 05/02/25 15:43 Labs: Lab Results 05/02/25 05/02/25 Range/Units 15:26 15:43 WBC 12.3 H (4.5-10.0) K/mm3 RBC 4.84 (4.2-5.4) M/mm3 Hgb 12.4 (12.0-15.0) g/dL Hct 39.8 (37.0-47.0) % MCV 82.2 (80-100) fl MCH 25.6 L (26-34) pg MCHC 31.2 L (32-36) g/dl RDW 16.0 H (11.5-14.5) % Plt Count 432 H (150-375) k/mm3 MPV 9.8 (7.4-10.4) fl Immature Gran % (Auto) 1.0 H (0-0.5) % Neut % (Auto) 80.4 H (45.5-73.1) % Lymph % (Auto) 12.4 L (18.3-44.2) % [place] % (Auto) 5.7 (2.6-8.5) % Eos % (Auto) 0.3 (0-4.4) % Baso % (Auto) 0.2 (0.2-1.2) % Lymph # (Auto) 1.53 (0.9-3.2) K/mm3 [place] # (Auto) 0.7 H (0.1-0.6) K/mm3 Eos # (Auto) 0.0 (0-0.3) K/mm3 Baso # (Auto) 0.0 (0.0-0.1) K/mm3 Abs Immat Gran (auto) 0.12 H (0.00-0.031) K/mm3 Absolute Neuts (auto) 9.9 H (1.3-6.7) K/mm3 Absolute Nucleated RBC 0.000 (0.0-0.012) K/mm3 Nucleated RBC % 0.0 (0.0-0.2) % Sodium 138 (137-145) mmol/L Potassium 3.7 (3.4-5.0) mmol/L Chloride 105 (98-107) mmol/L Carbon Dioxide 24 (22-30) mmol/L Anion Gap 9 (4-12) mmol/L BUN 4 L (7-17) mg/dL Creatinine 0.60 L (0.7-1.0) mg/dL Estim Creat Clear Calc 237 ml/min Estimated GFR > 60 (59 - ) Glucose 120 H (65-110) mg/dL POC Capillary Glucose 110 H (65-105) mg/dl Calcium 9.4 (8.4-10.2) mg/dL Total Bilirubin 0.5 (0.2-1.3) mg/dL AST 30 (14-36) U/L ALT 28 (6-35) U/L Alkaline Phosphatase 86 (38-126) U/L Total Protein 8.4 H (6.3-8.2) g/dL Albumin 4.4 (3.5-5.1) g/dL Lipase 36 (23-300) U/L Discharge Plan Discharge Clinical Impression: Nausea and vomiting Qualifiers: Vomiting type: unspecified Qualified Code(s): R11.2 - Nausea with vomiting, unspecified Urinary tract infection Qualifiers: Urinary tract infection type: site unspecified Hematuria presence: without hematuria Qualified Code(s): N39.0 - Urinary tract infection, site not specified Patient Disposition: Home Condition: Serious Instructions: Antibiotic Form, Acute Nausea and Vomiting (ED) Additional Instructions: You were seen in the emergency department. Your labs appear slightly improved compared to yesterday. Your given IV nausea medications with improvement. Your was able to order picker/assembler the previously prescribed medicines. I recommend following up with your primary care doctor. If you develop severe abdominal pain, persistent vomiting, bleeding, or if you have other emergent concerns for life, limb, or eyesight, return to the emergency department. Patient Language: Syrian Prescriptions: New prochlorperazine maleate [Compazine] 10 mg tablet 10 mg PO Q8H PRN (Reason: nausea and vomiting) Qty: 15 0RF No Action nitrofurantoin monohyd/m-cryst [Macrobid] 100 mg capsule 100 mg PO Q12H 5 Days Qty: 10 0RF Rx Instructions: must administer with a meal/food dicyclomine 20 mg tablet 20 mg PO TID Qty: 20 0RF capsaicin 0.1 % cream 1 applic topical TID Qty: 56.6 0RF Rx Instructions: do not wash area for at least 30 min after application Follow-up/Referrals: Meet Vizcarra MD [Physician] - 2 Weeks PHYSICIAN,HAND ZIPPER TRIMMER [Primary Care Provider] - Time of Disposition: 18:47
[2025-05-02] MEDS: SODIUM CHLORIDE 0.9% IV 1,000 ML 999 ML IV CONT (16:33)
[2025-05-02] MEDS: PROCHLORPERAZINE EDISYLATE 10 MG/2 ML VIAL IV PUSH (16:34)
--- NOTE | 2025-05-02 17:26 | PC.NURSE ---
per EDP Vel, gave patient saltine crackers and water to see if she can tolerate PO
== END 2025-05-02 18:56 | disposition home or self-care (01) ==
PROVIDERS: Emergency Provider Preventive Medicine Aerospace Medicine
DX: N39.0 Urinary tract infection, site not specified (principal); R11.2 Nausea with vomiting, unspecified
CPT/HCPCS: 36415; 80053; 82948; 83690; 85025; 96361; 96374; 99284; J0780; J7030

== ENCOUNTER 2025-05-05 16:46 | Emergency (ER) | payer SELFPAY ==
--- OUTSIDE RECORDS SUMMARY | 2025-05-05 16:48 | XMS_ITS | Clinical Summary ---
Author Organization [facility] Address [address] [place] [address] Phone Care Team Providers Care Prison Warden Name Role Phone Provider, None Primary Care [...] 05/01/2025 2:35 PM CDT Emergency [facility] Emergency [address] [place] [address] Axel Schmidt, PAC Nausea and vomiting Discharge [...] - 1.030 05/01/2025 2:07 PM CDT [facility] URINE PH 7.0 5.0 - 9.0 05/01/2025 2:07 PM CDT [facility] WBC ESTERASE 25 /ul(A) Negative 05/01/2025 2:07 PM CDT [facility] NITRITE Negative Negative 05/01/2025 2:07 PM CDT [facility] PROTEIN, RANDOM URINE 30 mg/dL(A) Negative 05/01/2025 2:07 PM CDT [facility] URINE GLUCOSE, QUAL Negative Negative 05/01/2025 2:07 PM CDT [facility] URINE KETONES 5 mg/dL(A) Negative 05/01/2025 2:07 PM CDT [facility] UROBILINOGEN Normal Normal mg/dL 05/01/2025 2:07 PM CDT [facility] URINE BLOOD 250 /uL(A) Negative brittany/ul 05/01/2025 2:07 PM CDT [facility] URINALYSIS COLOR Light Yellow 05/01/2025 2:07 PM CDT [facility] URINALYSIS CLARITY Clear 05/01/2025 2:07 PM CDT [facility] WBC (Urine) 0-5 Negative, 0-5 /hpf 05/01/2025 2:07 PM CDT [facility] URINE RBC'S 11-20(A) Negative, 0-2 /hpf 05/01/2025 2:07 PM CDT [facility] EPITHELIAL CELLS Occasional /lpf 05/01/2025 2:07 PM CDT [facility] BACTERIA, URINE Few(A) Negative /hpf 05/01/2025 2:07 PM CDT [facility] Urine URINE SPECIMEN / Unknown Non-Phlebotomy Collection / Unknown 05/01/2025 1:15 PM CDT 05/01/2025 1:28 PM CDT us Axel Schmidt PAC URINE ORDERABLES Fin al Result [facility] [address] [place] [address] * (ABNORMAL) Urine Drug Screen (05/01/2025 1:15 PM CDT) UR AMPHETAMINE NON DETECTED NON DETECTED 05/01/2025 2:01 PM CDT [facility] Comment: FOR MEDICAL USE ONLY. CUTOFF CONCENTRATION FOR DETECTED RESULT: AMPHETAMINE: 500 NG/ML UR BENZODIAZEPINES NON DETECTED NON DETECTED 05/01/2025 2:01 PM CDT [facility] Comment: FOR MEDICAL USE ONLY. CUTOFF CONCENTRATION FOR DETECTED RESULT: BENZODIAZAPINE: 200 NG/ML UR COCAINE METABOLITE NON DETECTED NON DETECTED 05/01/2025 2:01 PM CDT [facility] Comment: FOR MEDICAL USE ONLY. CUTOFF CONCENTRATION FOR DETECTED RESULT: COCAINE: 150 NG/ML UR OPIATES NON DETECTED NON DETECTED 05/01/2025 2:01 PM CDT [facility] Comment: FOR MEDICAL USE ONLY. CUTOFF CONCENTRATION FOR DETECTED RESULT: OPIATES: 300 NG/ML UR PHENCYCLIDINE NON DETECTED NON DETECTED 05/01/2025 2:01 PM CDT [facility] Comment: FOR MEDICAL USE ONLY. CUTOFF CONCENTRATION FOR DETECTED RESULT: PCP: 25 NG/ML UR CANNABINOID DETECTED(A) NON DETECTED 05/01/2025 2:01 PM CDT [facility] Comment: FOR MEDICAL USE ONLY. CUTOFF CONCENTRATION FOR DETECTED RESULT: THC (MARIJUANA): 50 NG/ML UR BARBITURATE NON DETECTED NON DETECTED 05/01/2025 2:01 PM CDT [facility] Comment: FOR MEDICAL USE ONLY. CUTOFF CONCENTRATION FOR DETECTED RESULT: BARBITUATES: 200 NG/ML UR FENTANYL NON DETECTED NON DETECTED 05/01/2025 2:01 PM CDT [facility] Comment: FOR MEDICAL USE ONLY. CUTOFF CONCENTRATION FOR DETECTED RESULT: FENTANYL: 1.0 NG/ML Urine Non-Phlebotomy Collection / Unknown 05/01/2025 1:15 PM CDT 05/01/2025 1:28 PM CDT us Axel Schmidt PAC URINE ORDERABLES Fin al Result [facility] [address] [place] [address] * (ABNORMAL) CBC with Auto Differential (05/01/2025 11:30 AM CDT) [facility] WBC 12.01(H) 4.00 - 12.00 10(3)/[facility] 05/01/2025 11:50 AM CDT [facility] RBC 4.88 3.80 - 5.30 10(6)/mcL 05/01/2025 11:50 AM CDT [facility] HEMOGLOBIN (HGB) 12.5 12.0 - 15.8 g/dL 05/01/2025 11:50 AM CDT [facility] HEMATOCRIT (HCT) 39.8 36.0 - 47.0 % 05/01/2025 11:50 AM CDT [facility] MCV 81.6(L) 82.0 - 96.0 fL 05/01/2025 11:50 AM CDT [facility] MCH 25.6(L) 26.0 - 34.0 pg 05/01/2025 11:50 AM CDT [facility] MCHC 31.4 31.0 - 36.0 g/dL 05/01/2025 11:50 AM CDT [facility] PLATELET COUNT 448(H) 140 - 440 10(3)/[facility] 05/01/2025 11:50 AM CDT [facility] RDW 15.7(H) 11.8 - 15.5 % 05/01/2025 11:50 AM CDT [facility] MPV 10.1 9.7 - 12.4 fL 05/01/2025 11:50 AM CDT [facility] NEUTROPHILS 80.5(H) 47.0 - 73.0 % 05/01/2025 11:50 AM CDT [facility] LYMPHOCYTES 14.3(L) 18.0 - 42.0 % 05/01/2025 11:50 AM CDT [facility] MONOCYTES 4.7 4.0 - 12.0 % 05/01/2025 11:50 AM CDT [facility] EOSINOPHILS 0.2 0.0 - 5.0 % 05/01/2025 11:50 AM CDT [facility] BASOPHILS 0.3 0.0 - 1.0 % 05/01/2025 11:50 AM CDT [facility] ABSOLUTE NEUTROPHILS 9.67(H) 1.60 - 7.70 10(3)/[facility] 05/01/2025 11:50 AM CDT [facility] ABSOLUTE LYMPHOCYTES 1.72 1.30 - 3.20 10(3)/[facility] 05/01/2025 11:50 AM CDT [facility] ABSOLUTE MONOCYTES 0.56 0.20 - 1.00 10(3)/[facility] 05/01/2025 11:50 AM CDT [facility] ABSOLUTE EOSINOPHIL 0.02 0.00 - 0.40 10(3)/[facility] 05/01/2025 11:50 AM CDT [facility] ABSOLUTE BASOPHILS 0.04 0.00 - 0.10 10(3)/[facility] 05/01/2025 11:50 AM CDT [facility] NRBC PER 100 WBC 0 05/01/20 11:50 AM CDT [facility] Blood Venipuncture / Unknown 05/01/2025 11:30 AM CDT 05/01/2025 11:45 AM CDT Axel Schmidt PAC HEMATOLOGY ORDERABLE S Final Result [facility] [address] [place] [address] * Lipase (05/01/2025 11:30 AM CDT) LIPASE 11 8 - 78 U/L 05/01/2025 12:08 PM CDT [facility] Blood Venipuncture / Unknown 05/01/2025 11:30 AM CDT 05/01/2025 11:45 AM CDT Axel Schmidt PAC CHEMISTRY ORDERABLES Final Result [facility] [address] [place] [address] * (ABNORMAL) CMP (05/01/2025 11:30 AM CDT) SODIUM 139 136 - 145 mmol/L 05/01/2025 12:08 PM CDT [facility] POTASSIUM 4.0 3.5 - 5.1 mmol/L 05/01/2025 12:08 PM CDT [facility] CHLORIDE 108(H) 98 - 107 mmol/L 05/01/2025 12:08 PM CDT [facility] CO2, VENOUS 23 22 - 30 mmol/L 05/01/2025 12:08 PM CDT [facility] ANION GAP 12.0 <18.0 mmol/L 05/01/2025 12:08 PM CDT [facility] GLUCOSE 122(H) 70 - 99 mg/dL 05/01/2025 12:08 PM CDT [facility] BUN 7 5 - 18 mg/dL 05/01/2025 12:08 PM CDT [facility] CREATININE, BLOOD 0.60 0.60 - 1.00 mg/dL 05/01/2025 12:08 PM CDT [facility] BUN/CREATININE RATIO 12 12 - 20 ratio 05/01/2025 12:08 PM CDT [facility] TOTAL PROTEIN 8.0 6.0 - 8.0 g/dL 05/01/2025 12:08 PM CDT [facility] ALBUMIN 3.9 3.5 - 5.0 g/dL 05/01/2025 12:08 PM CDT [facility] A/G RATIO 1.0 1.0 - 2.2 05/01/2025 12:08 PM CDT [facility] CALCIUM 8.9 8.7 - 10.5 mg/dL 05/01/2025 12:08 PM CDT [facility] T BILI 0.3 0.2 - 1.2 mg/dL 05/01/2025 12:08 PM CDT [facility] SGOT (AST) 19 <43 U/L 05/01/2025 12:08 PM CDT [facility] SGPT (ALT) 19 <56 U/L 05/01/2025 12:08 PM CDT [facility] ALKALINE PHOSPHATASE 69 40 - 150 U/L 05/01/2025 12:08 PM CDT [facility] GFR, ESTIMATED >60 >=60 05/01/2025 12:08 PM CDT [facility] Comment: Creatinine Clearance is the preferred criteria for selecting drug dose adjustments in renally impaired patients. The GFR is provided as additional pertinent clinical information. GFR is reported in mL/min/1.73 sq m. Calculation based on the Chronic Kidney Disease Epidemiology Collaboration (CKD- EPI) equation refit without adjustment for race. GFR, EST. >60 >=60 025 12:08 PM CDT [facility] GFR, EST. NONAFRICAN >60 >=60 05/01/2025 12:08 PM CDT [facility] Blood Venipuncture / Unknown 05/01/2025 11:30 AM CDT 05/01/2025 11:45 AM CDT us Axel Schmidt PAC CHEMISTRY ORDERABLES Final Result [facility] [address] [place] [address] from Last 3 Months Care Teams Prison Warden Relationship Specialty Start Date End Date Provider, None [place] PCP - General 05/01/25
--- OUTSIDE RECORDS SUMMARY | 2025-05-05 16:48 | XMS_ITS | Patient Health Record ---
Author Organization [facility] Address [address] [place] [address] Care Team Providers Care Auto Painter Name Role Phone Katalina Odom Primary Care Provider [phone] Reason For Referral No Information Medications Medication [...] Problem Status W/U Status Risk Notes Problem [id number] Major depression (F32.9) Active confirmed Problem [id number] Anxiety (F41.9) Active confirmed Plan Of Treatment No Information Insurance Providers Payer Name Payer Address Payer Phone Subscriber Number Group Number Insured Name Patient Relationship to Insured Coverage Start Date Coverage End Date [facility] [address] [address] [place] [address] [id number] Luz Maria Maya Self - patient is the insured 4
[2025-05-05 17:05] VITALS: BP 199/124; PULSE 71; RESP 14; TEMP 36.6; O2SAT 100
[2025-05-05 17:46] VITALS: PULSE 67; RESP 16; O2SAT 100
--- NOTE | 2025-05-05 18:30 | ED_ITS ---
HPI - Nausea/Vomiting/Diarrhea General Chief complaint: Nausea/Vomiting/Diarrhea Stated complaint: nausea, vomiting Time Seen by Provider: 05/05/25 17:22 History of Present Illness HPI Narrative: Patient is a 19-year-old female presents to the ER with nausea and vomiting. She is well known to this ER, as she has been here 3 times in the last week. Patient reports the promethazine has been helping control her nausea at home, but she ?did not wake up early enough to take it this morning. She denies any recent fevers, urinary symptoms, or back pain. Patient was prescribed antibiotics by this provider her 2nd to last visit here, but she reports she has not been taking them regularly. She denies any other medical history relevant to this ER visit. Related Data Allergies Allergy/AdvReac Type Severity Reaction Status Date / Time No Known Allergies Allergy Verified 09/12/23 21:47 Review of Systems 2 Review of Systems: All systems reviewed & are unremarkable except as noted in HPI and below PMFSH Past Medical History Medical History Suppression of menses PCOS (polycystic ovarian syndrome) Depression Morbid obesity Asthma Surgical History Surgical History H/O ovarian cystectomy History of tonsillectomy and adenoidectomy Family History Family History Other Family history of eczema Family history of elevated blood lipids Hypertension Social History Social History Smoking status: Never smoker Second hand tobacco smoke exposure: No Alcohol intake: never Substance use: never Substance use type: does not use Lack of Transportation: YES Lack of Food: Sometimes True Current Housing: I Have Housing Concerned About Future Housing: No Difficulty Paying Gas/Electric Bills: No Difficulty Paying for Meds: No Currently Unemployed: No Education: High School Diploma/GED Difficulty w/ Childcare or Family Care: No Living arrangements: with family Additional living arrangements comments: Occupation/Education: unemployed 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 HEAD: Normocephalic, atraumatic. NECK: Supple. No adenopathy, no masses. RESPIRATORY: Airway patent, respirations nonlabored. Clear to auscultation bilaterally, no rales, rhonchi, wheezing. CARDIOVASCULAR: Regular rate and rhythm without murmurs, rubs, or gallops. Peripheral pulses 2+ and equal bilaterally. ABDOMINAL: Soft, tender all four quadrants, nondistended, no hepatosplenomegaly. Normoactive BS. MUSCULOSKELETAL: Moves all extremities. Strength/ROM intact without gross deformities. SKIN: Warm, dry, normal color. No rashes. NEURO: A&O X3. Speech clear. Cranial nerves II-XII intact. No ataxic movements. PSYCHIATRIC: Appropriate mood and affect. Normal interaction. Course Vital Signs Vital signs: Vital Signs Temperature 36.6 C 05/05/25 17:05 Pulse Rate 71 05/05/25 17:05 Respiratory Rate 14 05/05/25 17:05 Blood Pressure 199/124 H 05/05/25 17:05 Pulse Oximetry 100 05/05/25 17:05 Oxygen Delivery Room Air 05/05/25 17:05 Temperature 36.6 C 05/05/25 17:05 Pulse Rate 63 05/05/25 18:47 Respiratory Rate 18 05/05/25 18:47 Blood Pressure 199/124 H 05/05/25 17:05 Pulse Oximetry 100 05/05/25 18:47 Oxygen Delivery Room Air 05/05/25 17:46 MDM - Nausea/Vomiting/Diarrhea MDM Narrative Medical decision making narrative: Patient is a 19-year-old female presents to the ER with nausea and vomiting. She is well known to this ER, as she has been here 3 times in the last week. Patient reports the promethazine has been helping control her nausea at home, but she ?did not wake up early enough to take it this morning. She denies any recent fevers, urinary symptoms, or back pain. Patient was prescribed antibiotics by this provider her 2nd to last visit here, but she reports she has not been taking them regularly. She denies any other medical history relevant to this ER visit. Labs Ordered: CBC, CMP, UA, UDS Imaging Ordered: None necessary Medications Ordered: 1 L normal saline IV bolus, Haldol 5 mg IM Results: Patient's CBC indicates a white blood cell count of 15.3, although her platelet count is 481, so patient may be dehydrated. Her CMP indicates a creatinine of 0.51, an ALT of 41, and a total protein of 8.4. Patient's urinalysis indicates 2+ ketones. Her UDS is positive for cannabinoids. Diagnosis: Cannibinoid hyperemesis Patient Education/Shared MDM: Results of lab work shared with patient. When JUNIOR PROJECT COORDINATOR went into evaluate pt she was tearful and says, Can I please just go home? Patient strongly advised to maintain hydration status upon discharge and follow- up with her PCP as soon as possible. She will be discharged home with no new prescriptions. Strict return precautions provided. Patient verbalized understanding and is in agreement with plan. Vital signs stable at time of discharge. All questions answered. Differential Diagnosis Differential diagnosis: Likely gastroenteritis, drug-induced nausea and vomiting and dehydration Lab Data Attestation: I reviewed the patient's lab results. 05/05/25 18:35 05/05/25 18:35 Labs: Lab Results 05/05/25 05/05/25 Range/Units 18:35 19:32 WBC 15.3 H (4.5-10.0) K/mm3 RBC 5.20 (4.2-5.4) M/mm3 Hgb 13.2 (12.0-15.0) g/dL Hct 41.8 (37.0-47.0) % MCV 80.4 (80-100) fl MCH 25.4 L (26-34) pg MCHC 31.6 L (32-36) g/dl RDW 15.8 H (11.5-14.5) % Plt Count 481 H (150-375) k/mm3 MPV 10.4 (7.4-10.4) fl Immature Gran % (Auto) 0.8 H (0-0.5) % Neut % (Auto) 79.8 H (45.5-73.1) % Lymph % (Auto) 13.6 L (18.3-44.2) % [place] % (Auto) 5.4 (2.6-8.5) % Eos % (Auto) 0.2 (0-4.4) % Baso % (Auto) 0.2 (0.2-1.2) % Lymph # (Auto) 2.09 (0.9-3.2) K/mm3 [place] # (Auto) 0.8 H (0.1-0.6) K/mm3 Eos # (Auto) 0.0 (0-0.3) K/mm3 Baso # (Auto) 0.0 (0.0-0.1) K/mm3 Abs Immat Gran (auto) 0.12 H (0.00-0.031) K/mm3 Absolute Neuts (auto) 12.2 H (1.3-6.7) K/mm3 Absolute Nucleated RBC 0.000 (0.0-0.012) K/mm3 Nucleated RBC % 0.0 (0.0-0.2) % Sodium 137 (137-145) mmol/L Potassium 3.8 (3.4-5.0) mmol/L Chloride 103 (98-107) mmol/L Carbon Dioxide 23 (22-30) mmol/L Anion Gap 11 (4-12) mmol/L BUN 7 (7-17) mg/dL Creatinine 0.51 L (0.7-1.0) mg/dL Estim Creat Clear Calc 271 ml/min Estimated GFR > 60 (59 - ) Glucose 109 (65-110) mg/dL Calcium 9.2 (8.4-10.2) mg/dL Total Bilirubin 0.6 (0.2-1.3) mg/dL AST 32 (14-36) U/L ALT 41 H (6-35) U/L Alkaline Phosphatase 82 (38-126) U/L Total Protein 8.4 H (6.3-8.2) g/dL Albumin 4.3 (3.5-5.1) g/dL Urine Color Yellow (Yellow) Urine Appearance Cloudy H (Clear) Urine pH 8.0 (5.0-9.0) Ur Specific [place] 1.015 (1.001-1.035) Urine Protein Negative (Negative) mg/dL Urine Glucose (UA) Negative (Negative) mg/dL Urine Ketones 2+ H (Negative) mg/dL Ur Blood (Man) Negative (Negative) Urine Nitrate Negative (Negative) Urine Bilirubin Negative (Negative) Urine Urobilinogen 0.2 (<2.0) mg/dL Leukocyte Esterase Rfl Negative (Negative) EB/UL Urine RBC 0-2 (0-2) /hpf Urine WBC 0-5 (0-3) /hpf Ur Squamous Epith Cells Occasional (Few) /hpf Urine Bacteria None seen /hpf Urine Casts 0-2 Urine Opiates Screen Negative (Negative) Urine Methadone Screen Negative (Negative) Ur Barbiturates Screen Negative (Negative) Ur Phencyclidine Scrn Negative (Negative) Ur Amphetamine Screen Negative (Negative) U Benzodiazepines Scrn Negative (Negative) Urine Cocaine Screen Negative (Negative) U Cannabinoids Screen Positive A (Negative) Discharge Plan Discharge Clinical Impression: Cannabinoid hyperemesis syndrome, Drug-induced nausea and vomiting Patient Disposition: Home Condition: Stable Instructions: Antibiotic Form, Cannabis Use Disorder (ED) Additional Instructions: Please return to the ER with any worsening symptoms. Follow-up with primary care provider as soon as possible. Take all medications as prescribed, including regularly scheduled medications. Patient Language: Sammarinese Prescriptions: No Action progesterone micronized [Prometrium] 200 mg capsule 200 mg PO QHS 10 Days Qty: 10 1RF cephalexin 500 mg capsule 500 mg PO Q6H 7 Days Qty: 28 0RF cephalexin 500 mg capsule 500 mg PO Q8H Qty: 15 0RF Follow-up/Referrals: Oscar,MD Amadeo [Non-Staff] - Time of Disposition: 20:53
[2025-05-05] MEDS: SODIUM CHLORIDE 0.9% IV 1,000 ML 999 ML IV CONT (18:39)
[2025-05-05] MEDS: HALOPERIDOL LACTATE 5 MG/ML VIAL IM (18:40)
[2025-05-05 18:41] LABS: Basophils Percent Auto 0.2 % (0.2-1.2); Eosinophils Percent Auto 0.2 % (0-4.4); Hematocrit 41.8 % (37.0-47.0); Hemoglobin 13.2 g/dL (12.0-15.0); Immature Granulocyte Absolute 0.12 K/mm3 (0.00-0.031); Immature Granulocyte Percent A 0.8 % (0-0.5); Lymphocytes Absolute Auto 2.09 K/mm3 (0.9-3.2); Lymphocytes Percent Auto 13.6 % (18.3-44.2); Mean Corpuscular HGB Conc 31.6 g/dl (32-36); Mean Corpuscular Hemoglobin 25.4 pg (26-34); Mean Corpuscular Volume 80.4 fl (80-100); Mean Platelet Volume 10.4 fl (7.4-10.4); Monocytes Absolute Auto 0.8 K/mm3 (0.1-0.6); Monocytes Percent Auto 5.4 % (2.6-8.5); Neutrophils Absolute Auto 12.2 K/mm3 (1.3-6.7); Neutrophils Percent Auto 79.8 % (45.5-73.1); Platelet Count Result 481 k/mm3 (150-375); Red Cell Distribution Width 15.8 % (11.5-14.5); White Blood Count 15.3 K/mm3 (4.5-10.0)
[2025-05-05 18:47] VITALS: PULSE 63; RESP 18; O2SAT 100
--- NOTE | 2025-05-05 18:50 | PC.NURSE ---
Pt said she does not have to urinate at this time.
[2025-05-05 18:51] LABS: Alanine Aminotransferase 41 U/L (6-35); Albumin Level 4.3 g/dL (3.5-5.1); Alkaline Phosphatase 82 U/L (38-126); Anion Gap 11 mmol/L (4-12); Aspartate Amino Transferase 32 U/L (14-36); Bilirubin,Total 0.6 mg/dL (0.2-1.3); Blood Urea Nitrogen 7 mg/dL (7-17); Calcium 9.2 mg/dL (8.4-10.2); Carbon Dioxide 23 mmol/L (22-30); Chloride 103 mmol/L (98-107); Estimated CRCL calculation 271 ml/min; Estimated Glomerular Filt Rate > 60; Glucose 109 mg/dL (65-110); Potassium 3.8 mmol/L (3.4-5.0); Sodium 137 mmol/L (137-145); Total Protein 8.4 g/dL (6.3-8.2)
--- OUTSIDE RECORDS SUMMARY | 2025-05-05 19:04 | XMS_ITS | Clinical Summary ---
Author Organization [facility] Address [address] [place] [address] Phone Care Team Providers Care Oracle Obiee Developer Name Role Phone Provider, None Primary [...] 2:35 PM CDT Emergency [facility] Emergency [address] [place] [id number] Axel Schmidt, PAC Nausea and vomiting Discharge [...] - 1.030 05/01/2025 2:07 PM CDT [facility] URINE PH 7.0 5.0 - 9.0 05/01/2025 2:07 PM CDT [facility] WBC ESTERASE 25 /ul(A) Negative 05/01/2025 2:07 PM CDT [facility] NITRITE Negative Negative 05/01/2025 2:07 [...] URINALYSIS CLARITY Clear 05/01/2025 2:07 PM CDT [facility] WBC (Urine) 0-5 Negative, 0-5 /hpf 05/01/2025 2:07 PM CDT [facility] URINE RBC'S 11-20(A) Negative, 0-2 /hpf 05/01/2025 2:07 PM CDT [facility] EPITHELIAL CELLS Occasional /lpf 05/01/2025 2:07 PM CDT [facility] BACTERIA, URINE Few(A) Negative /hpf 05/01/2025 2:07 PM CDT [facility] Urine URINE SPECIMEN / Unknown Non-Phlebotomy Collection / Unknown 05/01/2025 1:15 PM CDT 05/01/2025 1:28 PM CDT us Axel Schmidt PAC URINE ORDERABLES Fin al Result [facility] [address] [place] [address] * (ABNORMAL) Urine Drug Screen (05/01/2025 1:15 [...] DETECTED NON DETECTED 05/01/2025 2:01 PM CDT [facility] Comment: FOR MEDICAL USE ONLY. CUTOFF CONCENTRATION FOR DETECTED RESULT: FENTANYL: 1.0 NG/ML Urine Non-Phlebotomy Collection / Unknown 05/01/2025 1:15 PM CDT 05/01/2025 1:28 PM CDT us Axel Schmidt PAC URINE ORDERABLES Fin al Result [facility] [address] [place] [address] * (ABNORMAL) CBC with Auto Differential (05/01/2025 11:30 AM CDT) [facility] WBC 12.01(H) 4.00 - 12.00 10(3)/[facility] 05/01/2025 11:50 AM CDT [facility] [...] - 36.0 g/dL 05/01/2025 11:50 AM CDT [facility] PLATELET COUNT 448(H) 140 - 440 10(3)/[facility] 05/01/2025 11:50 AM CDT [facility] RDW 15.7(H) 11.8 - 15.5 % 05/01/2025 11:50 AM CDT [facility] MPV 10.1 9.7 - 12.4 fL 05/01/2025 11:50 AM CDT [facility] NEUTROPHILS 80.5(H) 47.0 - 73.0 % 05/01/2025 11:50 AM CDT [facility] LYMPHOCYTES 14.3(L) 18.0 - 42.0 % 05/01/2025 11:50 AM CDT [facility] MONOCYTES 4.7 4.0 - 12.0 % 05/01/2025 11:50 AM CDT [facility] EOSINOPHILS 0.2 0.0 - 5.0 % 05/01/2025 11:50 AM CDT [facility] BASOPHILS 0.3 0.0 - 1.0 % 05/01/2025 11:50 AM CDT [facility] ABSOLUTE NEUTROPHILS 9.67(H) 1.60 - 7.70 10(3)/[facility] 05/01/2025 11:50 AM CDT [facility] ABSOLUTE LYMPHOCYTES 1.72 1.30 - 3.20 10(3)/[facility] 05/01/2025 11:50 AM CDT [facility] ABSOLUTE MONOCYTES 0.56 0.20 - 1.00 10(3)/[facility] 05/01/2025 11:50 AM CDT [facility] ABSOLUTE EOSINOPHIL 0.02 0.00 - 0.40 10(3)/[facility] 05/01/2025 11:50 AM CDT [facility] ABSOLUTE BASOPHILS 0.04 0.00 - 0.10 10(3)/[facility] 05/01/2025 11:50 AM CDT [facility] NRBC PER 100 WBC 0 05/01/20 11:50 AM CDT [facility] Blood Venipuncture / Unknown 05/01/2025 11:30 AM CDT 05/01/2025 11:45 AM CDT Axel Schmidt PAC HEMATOLOGY ORDERABLE S Final Result [facility] [address] [place] [address] * Lipase (05/01/2025 11:30 AM CDT) LIPASE 11 8 - 78 U/L 05/01/2025 12:08 PM CDT [facility] Blood Venipuncture / Unknown 05/01/2025 11:30 AM CDT 05/01/2025 11:45 AM CDT Axel Schmidt PAC CHEMISTRY ORDERABLES Final Result [facility] [address] [place] [address] * (ABNORMAL) CMP (05/01/2025 11:30 AM CDT) SODIUM 139 136 - 145 mmol/L 05/01/2025 12:08 PM CDT [facility] POTASSIUM 4.0 3.5 - 5.1 mmol/L 05/01/2025 12:08 PM CDT [facility] CHLORIDE 108(H) 98 - 107 mmol/L 05/01/2025 12:08 PM CDT [facility] CO2, VENOUS 23 22 - 30 mmol/L 05/01/2025 12:08 PM CDT [facility] ANION GAP 12.0 <18.0 mmol/L 05/01/2025 12:08 PM CDT [facility] GLUCOSE 122(H) 70 - 99 mg/dL 05/01/2025 12:08 PM CDT [facility] BUN 7 5 - 18 mg/dL 05/01/2025 12:08 PM CDT [facility] CREATININE, BLOOD 0.60 0.60 - 1.00 mg/dL 05/01/2025 12:08 PM CDT [facility] BUN/CREATININE RATIO 12 12 - 20 ratio 05/01/2025 12:08 PM CDT [facility] TOTAL PROTEIN 8.0 6.0 - 8.0 g/dL 05/01/2025 12:08 PM CDT [facility] ALBUMIN 3.9 3.5 - 5.0 g/dL 05/01/2025 12:08 PM CDT [facility] A/G RATIO 1.0 1.0 - 2.2 05/01/2025 12:08 PM CDT [facility] CALCIUM 8.9 8.7 - 10.5 mg/dL 05/01/2025 12:08 PM CDT [facility] T BILI 0.3 0.2 - [...] NONAFRICAN >60 >=60 05/01/2025 12:08 PM CDT [facility] Blood Venipuncture / Unknown 05/01/2025 11:30 AM CDT 05/01/2025 11:45 AM CDT us Axel Schmidt PAC CHEMISTRY ORDERABLES Final Result [facility] [address] [place] [address] from Last 3 Months Care Teams [employer] Developer Relationship Specialty Start Date End Date Provider, None [place] PCP - General 05/01/25
[2025-05-05 19:45] LABS: Add Urine Microscopic? YES; Appearance Urine Cloudy (Clear); Bacteria Urine None Seen /hpf; Bilirubin Urine Negative (Negative); Blood Urine Negative (Negative); Color Urine Yellow (Yellow); Glucose Urine UA Negative (Negative); Ketones Urine 2+ mg/dL (Negative); Leukocyte Esterase Ur Negative LEU/UL (Negative); Nitrate Urine Negative (Negative); Non Pathogenic Casts 0-2; Protein Urine Negative (Negative); RBC Urine 0-2 /hpf (0-2); Specific Grav Ur 1.015 (1.001-1.035); Squamous Epithelial Cell Urine Occasional /hpf (Few); Urobilinogen Urine 0.2 mg/dL (<2.0); WBC Urine 0-5 /hpf (0-3)
[2025-05-05 20:05] LABS: Amphetamine Screen Urine Negative (Negative); Barbiturate Screen Urine Negative (Negative); Benzodiazepines Screen Urine Negative (Negative); Cannabinoid Screen Urine Positive (Negative); Cocaine Screen Urine Negative (Negative); Methadone Screen Urine Negative (Negative); Opiate Screen Urine Negative (Negative); Phencyclidine Screen Urine Negative (Negative)
[2025-05-05 20:56] VITALS: BP 144/94; PULSE 94; RESP 18; TEMP 36.6; O2SAT 97
== END 2025-05-05 21:02 | disposition home or self-care (01) ==
PROVIDERS: Emergency Provider Registered Nurse
DX: R11.2 Nausea with vomiting, unspecified (principal); F12.90 Cannabis use, unspecified, uncomplicated; J45.909 Unspecified asthma, uncomplicated; E28.2 Polycystic ovarian syndrome; E66.01 Morbid (severe) obesity due to excess calories; Z68.45 Body mass index [BMI] 70 or greater, adult; F32.A Depression, unspecified; Z79.890 Hormone replacement therapy
CPT/HCPCS: 36415; 80053; 80307; 81001; 85025; 96360; 96372; 99283; J1630; J7030